=== PATIENT | female | born 1995 ===

== ENCOUNTER 2020-08-03 10:06 | Outpatient (REF) | payer OTHER, SELFPAY ==
[2020-08-03 12:56] LABS: TSH reflex Free T4 1.07 mIU/mL (0.32-4.0)
== END 2020-08-03 10:07 | disposition home or self-care (01) ==
LOC: HO.LAB 10:06
PROVIDERS: PCP Internal Medicine; Referring Provider Internal Medicine; Visit Provider Obstetrics & Gynecology
DX: N93.9 Abnormal uterine and vaginal bleeding, unspecified (principal); Z00.00 Encounter for general adult medical examination without abnormal findings
CPT/HCPCS: 84443; 99213

== ENCOUNTER → 2020-08-27 08:11 | Outpatient (BNVA) | payer OTHER, SELFPAY | PROVIDERS: Visit Provider Obstetrics & Gynecology | DX: N64.4 Mastodynia (principal) | CPT/HCPCS: 99212 ==

== ENCOUNTER 2020-09-03 13:44 | Outpatient (REF) | payer OTHER, SELFPAY ==
--- NOTE | 2020-09-03 | US_ITS ---
EXAMINATION: US DIAGNOSTIC ULTRASOUND BREAST, RIGHT CLINICAL INFORMATION: 24-year-old with pain lower outer right breast. Patient senses fullness right breast. No known family history breast cancer. No prior breast imaging. COMPARISON: None. TECHNIQUE: Ultrasound of the breast is performed with real-time clark scale imaging and color Doppler. Ultrasound is targeted to the 6:00 through 11:00 position. Patient does not palpate a focal area of concern at time of imaging. FINDINGS: There is a macrolobulated circumscribed mildly hypoechoic nodule 10:00 position 6 cm from nipple measuring 1.4 x 1.1 x 0.8 cm. There is no increased or decreased through transmission of sound. This most likely represents a fibroadenoma. There are no other cystic or solid masses. No skin thickening or edema tracking in soft tissue planes. No focal duct ectasia or hyperemia. Results are discussed with the patient at time of visit, using an sporting goods salesperson. Management options for the probable fibroadenoma were discussed. Patient favors serial follow-up. US/US breast RT limited IMPRESSION: 1. Macrolobulated circumscribed nodule 10:00 position 1.4 cm, likely fibroadenoma. 2. No suspicious cystic or solid mass or architectural abnormality. No inflammatory changes. ASSESSMENT: BI-RADS 3: Probably Benign RECOMMENDATION: Targeted right breast ultrasound in 6 months. This patient's information was entered into a reminder system with a target due date for their next breast imaging.
== END 2020-09-03 13:45 | disposition home or self-care (01) ==
LOC: HO.MAMMO 13:44
PROVIDERS: PCP Internal Medicine; Visit Provider Obstetrics & Gynecology
DX: N64.4 Mastodynia (principal)
CPT/HCPCS: 76642

== ENCOUNTER 2020-09-10 14:21 | Outpatient (REF) | payer OTHER, SELFPAY | END 2020-09-10 14:22 | disposition home or self-care (01) | LOC: HO.LAB 14:21 | PROVIDERS: PCP Internal Medicine; Visit Provider Internal Medicine | DX: Z20.828 Contact with and (suspected) exposure to other viral communicable diseases (principal) | CPT/HCPCS: C9803; U0003 ==

== ENCOUNTER 2020-09-19 08:32 | Outpatient (REF) | payer OTHER, SELFPAY ==
[2020-09-20 09:35] LABS: BV Int Neg Control Negative (Negative); BV Int Pos Control Positive (Positive)
[2020-09-25 11:31] LABS: CT PCR NOT DETECTED (Not Detect.); NG PCR NOT DETECTED (Not Detect.)
== END 2020-09-19 08:33 | disposition home or self-care (01) ==
LOC: HO.LAB 08:32
PROVIDERS: Visit Provider Obstetrics & Gynecology
DX: Z01.419 Encounter for gynecological examination (general) (routine) without abnormal findings (principal); Z11.3 Encounter for screening for infections with a predominantly sexual mode of transmission
CPT/HCPCS: 87480; 87491; 87510; 87591; 87660; 88142

== ENCOUNTER 2020-09-26 06:36 | Outpatient (REF) | payer OTHER, SELFPAY | END 2020-09-26 06:37 | disposition home or self-care (01) | LOC: HO.LAB 06:36 | PROVIDERS: PCP Internal Medicine; Visit Provider Internal Medicine | DX: Z20.828 Contact with and (suspected) exposure to other viral communicable diseases (principal) | CPT/HCPCS: C9803; U0003 ==

== ENCOUNTER 2021-03-04 12:47 | Outpatient (REF) | payer OTHER, SELFPAY ==
--- NOTE | ~2021-03-04 | US_ITS ---
EXAMINATION: US DIAGNOSTIC ULTRASOUND BREAST, RIGHT CLINICAL INFORMATION: Probable fibroadenoma upper outer right breast for short interval six-month follow-up. COMPARISON: Targeted right breast ultrasound 09/03/2020. TECHNIQUE: Ultrasound right breast is targeted to the upper outer quadrant. Grayscale imaging and color Doppler are performed without and with harmonics. FINDINGS: The solid macrolobulated mass 10:00 position 6 cm from nipple is stable to borderline decreased in size from initial exam 09/03/2020. Greatest dimension is 1.2 cm compared with prior measurement 1.4 cm. There is no interval new cystic or solid mass in the targeted area. No focal duct ectasia. No suspicious changes. Results are provided to the patient at time of visit by the technologist. Management plan is for short interval follow-up in 6 months (1 year follow-up from initial study). 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 ASSESSMENT: BI-RADS 3: Probably Benign RECOMMENDATION: Targeted right breast ultrasound in 6 months. This patient's information was entered into a reminder system with a target due date for their next breast imaging.
== END 2021-03-04 12:48 | disposition home or self-care (01) ==
LOC: HO.MAMMO 12:47
PROVIDERS: PCP Internal Medicine; Visit Provider Obstetrics & Gynecology
DX: N63.11 Unspecified lump in the right breast, upper outer quadrant (principal)
CPT/HCPCS: 76642

== ENCOUNTER 2021-06-20 08:43 | Outpatient (REF) | payer OTHER, SELFPAY ==
--- NOTE | ~2021-06-20 | XR_ITS ---
EXAMINATION: XR CERVICAL SPINE XR CHEST CLINICAL INFORMATION: Cervicalgia and shortness of breath. COMPARISON: None TECHNIQUE: 4 view cervical spine and PA and lateral chest. FINDINGS: No abnormal prevertebral soft tissue swelling is seen. No acute cervical spine fracture. 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 Remainder of the disc spaces are maintained. PA and lateral views of the chest do not demonstrate any evidence of acute parenchymal disease, pneumothorax, or pleural effusion. Heart normal size. No evidence of pulmonary edema. XR/XR cervical spine 3V IMPRESSION: No acute parenchymal disease within the chest. 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 No significant degenerative change or fracture of the cervical spine.
--- NOTE | ~2021-06-20 | XR_ITS ---
EXAMINATION: XR CERVICAL SPINE XR CHEST CLINICAL INFORMATION: Cervicalgia and shortness of breath. COMPARISON: None TECHNIQUE: 4 view cervical spine and PA and lateral chest. FINDINGS: No abnormal prevertebral soft tissue swelling is seen. No acute cervical spine fracture. 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 Remainder of the disc spaces are maintained. PA and lateral views of the chest do not demonstrate any evidence of acute parenchymal disease, pneumothorax, or pleural effusion. Heart normal size. No evidence of pulmonary edema. XR/XR chest 2V IMPRESSION: No acute parenchymal disease within the chest. 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 No significant degenerative change or fracture of the cervical spine.
[2021-06-20 09:05] LABS: MANUAL DIFF FLAG NO
[2021-06-20 09:13] LABS: Basophils Percent Auto 0.6 % (0-2); Eosinophils Absolute Auto 0.1 X10*3/uL (0.0-0.4); Eosinophils Percent Auto 1.8 % (0-4); Hematocrit 38.9 % (37-47); Hemoglobin 12.3 g/dl (12.0-16.0); Imm Gran Abs Auto 0.01 X10*3/uL (0.00-0.03); Imm Gran Pct Auto 0.1 % (0.0-0.4); Lymphocytes Absolute Auto 2.9 X10*3/uL (1.2-4.9); Lymphocytes Percent Auto 42.4 % (20-40); Mean Corpuscular HGB Conc 31.6 g/dl (31.0-35.0); Mean Corpuscular Hemoglobin 25.3 pg (27.0-33.0); Mean Platelet Volume 9.2 fL (9.4-12.3); Monocytes Absolute Auto 0.7 X10*3/uL (0.1-1.2); Monocytes Percent Auto 10.8 % (2-11); Neutrophils Percent Auto 44.3 % (45-73); Platelet Count 391 X10*3/uL (160-400); Red Blood Count 4.86 X10*6/uL (4.20-5.50); Red Cell Distribution Width 13.2 % (11.0-16.0); White Blood Count 6.8 X10*3/uL (4.8-10.8)
[2021-06-20 09:49] LABS: Alanine Aminotransferase 12 U/L (0-31); Albumin Level 4.1 g/dL (3.5-5.0); Alkaline Phosphatase 67 U/L (39-117); Anion Gap 13 (12-20); Aspartate Amino Transferase 10 U/L (5-31); Bilirubin Total 0.2 mg/dL (0.0-1.0); Calcium 10.1 mg/dL (8.4-10.2); Carbon Dioxide 20 mmol/L (22-29); Chloride 108 mmol/L (96-108); Cholesterol 196 mg/dL; Estimated Glomerular Filt Rate > 60; Glucose Fasting 111 mg/dL (60-99); HDL Cholesterol 43 mg/dL; Iron 41 mcg/dL (30-160); LDL Cholesterol Calculated 107 mg/dl; Percent Iron Saturation 8 % (15-50); Potassium 4.3 mmol/L (3.3-5.1); Sodium 137 mmol/L (135-145); Total Iron Binding Capacity 493 mcg/dL (228-428); Total Protein 7.5 g/dL (6.5-8.0); Triglycerides 231 mg/dL; Unsaturated Iron Binding 452 ug/dL
[2021-06-20 10:04] LABS: Thyroid Stimulating Hormone 1.58 uIU/mL (0.32-4.0)
[2021-06-20 10:23] LABS: Blood Urea Nitrogen 12 mg/dL (9-16)
[2021-06-27 14:07] LABS: Vitamin D 25-OH, D2 <4 ng/mL; Vitamin D 25-OH, D3 42 ng/mL; Vitamin D 25-OH, Total 42 ng/mL (30-100)
== END 2021-06-20 08:44 | disposition home or self-care (01) ==
LOC: HO.LAB 08:43
PROVIDERS: PCP Internal Medicine; Visit Provider Internal Medicine
DX: M54.2 Cervicalgia (principal); R06.02 Shortness of breath; E78.5 Hyperlipidemia, unspecified; E55.9 Vitamin D deficiency, unspecified; E66.3 Overweight; D64.9 Anemia, unspecified
CPT/HCPCS: 36415; 71046; 72040; 80053; 80061; 82306; 83540; 84443; 85025

== ENCOUNTER 2021-07-30 06:59 | Emergency (ER) | payer OTHER, SELFPAY ==
[2021-07-30 07:18] VITALS: BP 116/78; PULSE 94; RESP 16; TEMP 36.8; O2SAT 98; BMI 26.3
--- NOTE | 2021-07-30 07:24 | ED.URI ---
HPI - URI/Sore Throat General Chief Complaint: Upper Respiratory Symptoms Stated Complaint: sore throat, allergies Time Seen by Provider: 07/30/21 07:24 Source: patient Mode of arrival: ambulatory Limitations: no limitations History of Present Illness MD elicited complaint: fever, cough, sore throat and rhinorrhea Onset (ago): day(s) (3) Consistency: constant Severity: moderate Description of mucous: clear Able to tolerate fluids by mouth: Yes Exacerbating factors: swallowing Relieving factors: nothing Context: sick contacts Associated symptoms: chills, rhinorrhea, sore throat and cough Treatments prior to arrival: none Related Data Previous Rx's Medication Instructions Recorded desogestrel 0.15 mg-ethinyl 1 tab PO DAILY #28 tab 07/10/21 estradiol 0.03 mg tablet (Apri) Apri 0.15 mg-0.03 mg tablet 1 tab PO DAILY #28 tab NS 07/11/21 (desogestrel-ethinyl estradiol) Allergies Allergy/AdvReac Type Severity Reaction Status Date / Time shellfish derived Allergy Intermediate Rash Verified 06/05/21 16:53 seafood Allergy Unknown Unknown Verified 06/05/21 16:53 Review of Systems Review of Systems: Constitutional : no Fever, positive Chills, positive fatigue, positive Malaise ENT/Mouth : positive sore throat, positive runny nose Eyes: No Discharge Cardiovascular : No Chest Pain, No SOB Respiratory : No Cough, No Sputum Gastrointestinal : No Nausea, No Vomiting, No Diarrhea Genitourinary : No Dysuria, No Urinary Frequency Musculoskeletal : positive Myalgia Skin : No rash Neuro : No Headache PMFSH Past Medical History Attestation statement: The following information was validated with the patient. Medical History Anemia Blurry vision History of anemia History of irregular menstrual bleeding Mild depression Neck pain Overweight (BMI 25.0-29.9) Surgical History No pertinent past surgical history Family History Family History Father Diabetes mellitus HTN (hypertension) Mother Diabetes mellitus Paternal Grandfather HTN (hypertension) Family/Other Substance abuse in family Chronic mental illness Social History Social History Housing: Apartment Alcohol intake: never Patient Tobacco Use Status: Former Tobacco user Tobacco use type: Cigarette e-Cigarette/Vaping Use: Never Used Second Hand Smoke Exposure: No Advance Directives: No Patient : No service: No Current occupational status: unemployed Sexual orientation: Straight/Heterosexual Gender identity: Female Physical Exam Vital Signs: Vital Signs: Last Vital Signs Temp 98.3 F 07/30/21 07:18 Pulse 94 07/30/21 07:18 Resp 16 07/30/21 07:18 BP 116/78 07/30/21 07:18 Pulse Ox 98 07/30/21 07:18 Body Mass Index 26.3 Appearance: Alert. Oriented X3. No acute distress. Eyes: Pupils equal, round and reactive to light. ENT: Pharynx mild erythema no exudates noted Neck: Normal inspection. Neck supple. CVS: Normal heart rate and rhythm. Pulses normal. Respiratory: No respiratory distress. Breath sounds normal. Abdomen: Soft and nontender. Skin: Skin warm and dry. Normal skin color. Normal skin turgor. Extremities: No lower extremity edema. No calf ttp Neuro: Oriented X 3. No motor deficit. No sensory deficit. MDM - URI/Sore Throat MDM Narrative Medical decision making narrative: 25 yo female hx of anemia here with URI symptoms not vaccinated she came to the ED with her spouse who has similar symptoms. Her lungs are clear no hypoxia doubt pneumonia, no exudates in pharynx doubt strep. COVID test ordered. Can be DC to home if positive Lab Data Labs: Lab Results 07/30/21 07/30/21 Range/Units 07:23 08:02 COVID-19 (ANNIKA) Negative (Negative) COVID-19 Clin Com See Note S. pyogenes GrpA MARK Negative (Negative) Discharge Plan Discharge Clinical Impression: Viral infection Patient Disposition: Home, Self-Care Instructions: Viral Syndrome (ED) Additional Instructions: return to ED for any worsening symptoms or concerns I WOULD GET RETESTED IN 2 days quarantine yourself from others wear a mask, your symptoms are concerning for COVID even though your test was negative Prescriptions: No Action desogestrel-ethinyl estradiol [Apri] 0.15-0.03 mg tablet 1 tab PO DAILY Qty: 28 RF: 2 desogestrel-ethinyl estradiol [Apri] 0.15-0.03 mg tablet 1 tab PO DAILY Qty: 28 RF: 2 Stand Alone Forms: Work/School Release
[2021-07-30 07:45] LABS: COVID-19 Test Negative (Negative); IDNOW Serial# 9DD0AD1C
[2021-07-30 08:20] LABS: IDNOW Serial# 9DD0AD1C
[2021-07-30 08:21] LABS: Strep A Nucleic Acid Negative (Negative)
== END 2021-07-30 08:31 | disposition home or self-care (01) ==
PROVIDERS: Emergency Provider Emergency Medicine; PCP Internal Medicine
DX: B34.9 Viral infection, unspecified (principal); J02.8 Acute pharyngitis due to other specified organisms; R05.9 Cough, unspecified; F17.210 Nicotine dependence, cigarettes, uncomplicated; Z20.822 Contact with and (suspected) exposure to COVID-19; Z71.6 Tobacco abuse counseling; Z79.899 Other long term (current) drug therapy
CPT/HCPCS: 36415; 87635; 87651; 99283; 99284

== ENCOUNTER 2021-08-01 10:07 | Outpatient (REF) | payer OTHER, SELFPAY | END 2021-08-01 10:08 | disposition home or self-care (01) | LOC: HO.LAB 10:07 | PROVIDERS: Visit Provider Internal Medicine | DX: Z20.822 Contact with and (suspected) exposure to COVID-19 (principal) | CPT/HCPCS: C9803; U0003; U0005 ==

== ENCOUNTER 2021-10-25 12:44 | Outpatient (REF) | payer OTHER, SELFPAY ==
--- NOTE | ~2021-10-25 | US_ITS ---
EXAMINATION: US DIAGNOSTIC ULTRASOUND BREAST, RIGHT CLINICAL INFORMATION: Six-month followup right breast nodule. COMPARISON: 03/04/2021 and 09/03/2020. TECHNIQUE: Ultrasound of the breast is performed with real-time clark-scale imaging and color Doppler. FINDINGS: There is again noted be a stable 1.1 x 1.3 x 0.7 cm well-circumscribed hypoechoic solid lesion which is wider than it is tall without distal sound shadowing and without internal vascularity. This has the appearance of a fibroadenoma. Recommend a 1-year followup ultrasound to ensure stability to greater than 2 years. No region of abnormal distal sound shadowing identified. No edematous change within the parenchyma. Results are discussed with the patient at time of visit. US/US breast RT limited IMPRESSION: Stable appearance of right breast nodule likely representing fibroadenoma. ASSESSMENT: BI-RADS 3: Probably Benign. RECOMMENDATION: Diagnostic 12-month ultrasound examination of the right breast. This patient's information was entered into a reminder system with a target due date for their next mammogram.
== END 2021-10-25 12:45 | disposition home or self-care (01) ==
LOC: HO.MAMMO 12:44
PROVIDERS: Visit Provider Obstetrics & Gynecology
DX: N63.10 Unspecified lump in the right breast, unspecified quadrant (principal)
CPT/HCPCS: 76642

== ENCOUNTER 2021-11-05 07:54 | Outpatient (REF) | payer OTHER, SELFPAY ==
[2021-11-05 08:04] LABS: MANUAL DIFF FLAG NO
[2021-11-05 09:03] LABS: Basophils Percent Auto 0.3 % (0-2); Eosinophils Absolute Auto 0.1 X10*3/uL (0.0-0.4); Eosinophils Percent Auto 1.3 % (0-4); Hematocrit 38.9 % (37.0-47.0); Hemoglobin 12.3 g/dl (12.0-16.0); Imm Gran Abs Auto 0.03 X10*3/uL (0.00-0.03); Imm Gran Pct Auto 0.3 % (0.0-0.4); Lymphocytes Absolute Auto 3.6 X10*3/uL (1.2-4.9); Lymphocytes Percent Auto 41.1 % (20-40); Mean Corpuscular HGB Conc 31.6 g/dl (31.0-35.0); Mean Corpuscular Hemoglobin 26.2 pg (27.0-33.0); Mean Corpuscular Volume 82.9 fL (80.0-98.0); Mean Platelet Volume 9.1 fL (9.4-12.3); Monocytes Absolute Auto 0.7 X10*3/uL (0.1-1.2); Monocytes Percent Auto 8.2 % (2-11); Neutrophils Absolute Auto 4.3 x10*3/uL (2.0-8.3); Neutrophils Percent Auto 48.8 % (45-73); Platelet Count 395 X10*3/uL (160-400); Red Blood Count 4.69 X10*6/uL (4.20-5.50); Red Cell Distribution Width 12.7 % (11.0-16.0); White Blood Count 8.7 X10*3/uL (4.8-10.8)
[2021-11-05 09:35] LABS: Alanine Aminotransferase 11 U/L (0-31); Alkaline Phosphatase 69 U/L (39-117); Anion Gap 13 (12-20); Aspartate Amino Transferase 10 U/L (5-31); Bilirubin Total 0.4 mg/dL (0.0-1.0); Blood Urea Nitrogen 12 mg/dL (9-16); Calcium 9.9 mg/dL (8.4-10.2); Carbon Dioxide 25 mmol/L (22-29); Chloride 107 mmol/L (96-108); Estimated Glomerular Filt Rate > 60; Glucose Fasting 96 mg/dL (60-99); Iron 66 mcg/dL (30-160); Percent Iron Saturation 13 % (15-50); Potassium 4.5 mmol/L (3.3-5.1); Sodium 140 mmol/L (135-145); Total Iron Binding Capacity 515 mcg/dL (228-428); Total Protein 7.7 g/dL (6.5-8.0); Unsaturated Iron Binding 449 ug/dL
[2021-11-05 10:05] LABS: Folate 8.8 ng/mL (> or = 4.0); Vitamin B12 205 pg/mL (200-900)
== END 2021-11-05 07:55 | disposition home or self-care (01) ==
LOC: HO.LAB 07:54
PROVIDERS: PCP Internal Medicine; Visit Provider Internal Medicine
DX: E66.3 Overweight (principal); D64.9 Anemia, unspecified
CPT/HCPCS: 36415; 80053; 82607; 82746; 83540; 85025

== ENCOUNTER 2022-04-12 09:37 | Outpatient (REF) | payer OTHER, SELFPAY ==
[2022-04-12 09:43] LABS: MANUAL DIFF FLAG NO
[2022-04-12 10:24] LABS: Basophils Percent Auto 0.5 % (0-2); Eosinophils Absolute Auto 0.2 X10*3/uL (0.0-0.4); Eosinophils Percent Auto 2.3 % (0-4); Hematocrit 38.1 % (37.0-47.0); Hemoglobin 12.2 g/dl (12.0-16.0); Imm Gran Abs Auto 0.02 X10*3/uL (0.00-0.03); Imm Gran Pct Auto 0.3 % (0.0-0.4); Lymphocytes Absolute Auto 1.7 X10*3/uL (1.2-4.9); Lymphocytes Percent Auto 26.8 % (20-40); Mean Corpuscular Hemoglobin 25.9 pg (27.0-33.0); Mean Corpuscular Volume 80.9 fL (80.0-98.0); Mean Platelet Volume 9.2 fL (9.4-12.3); Monocytes Absolute Auto 0.8 X10*3/uL (0.1-1.2); Monocytes Percent Auto 11.7 % (2-11); Neutrophils Absolute Auto 3.8 x10*3/uL (2.0-8.3); Neutrophils Percent Auto 58.4 % (45-73); Platelet Count 398 X10*3/uL (160-400); Red Blood Count 4.71 X10*6/uL (4.20-5.50); Red Cell Distribution Width 13.2 % (11.0-16.0); White Blood Count 6.4 X10*3/uL (4.8-10.8)
[2022-04-12 10:46] LABS: Iron 39 mcg/dL (30-160); Percent Iron Saturation 8 % (15-50); Total Iron Binding Capacity 466 mcg/dL (228-428); Unsaturated Iron Binding 427 ug/dL
[2022-04-12 11:10] LABS: Thyroid Stimulating Hormone 0.68 uIU/mL (0.32-4.0)
== END 2022-04-12 09:38 | disposition home or self-care (01) ==
LOC: HO.LAB 09:37
PROVIDERS: PCP Internal Medicine; Visit Provider Internal Medicine
DX: L65.9 Nonscarring hair loss, unspecified (principal); D64.9 Anemia, unspecified
CPT/HCPCS: 36415; 83540; 84443; 85025

== ENCOUNTER 2022-04-13 10:09 | Emergency (ER) | payer OTHER, SELFPAY ==
[2022-04-13 10:24] VITALS: BP 115/56; PULSE 99; RESP 20; TEMP 37.7; O2SAT 98; BMI 28.2
[2022-04-13 10:42] LABS: COVID-19 Test Positive (Negative); IDNOW Serial# 9DB6401D
[2022-04-13 10:49] LABS: IDNOW Serial# 16C4AD1C; Influenza A Negative (Negative); Influenza B2 Negative (Negative)
--- NOTE | 2022-04-13 10:49 | ED_ITS ---
HPI - General Adult General Chief complaint: General Medical Stated complaint: Flu symptoms Time Seen by Provider: 04/13/22 10:49 Source: patient and senior microsoft consultant Mode of arrival: ambulatory Limitations: language barrier History of Present Illness HPI narrative: Patient is a 26 year old female presenting to the emergency department today with body aches, fever, and chills since yesterday. Patient states that since yesterday she has had body aches, fever, and chills. Patient denies any dizziness, lightheadedness, abdominal pain, nausea, vomiting, blurry vision, double vision, loss of vision, chest pain, difficulty breathing, shortness of breath, back pain, night sweats, pain with urination, increased urinary frequency, increased urinary urgency, blood in her urine or stool, syncope or a near syncopal episode, recent trauma or falls, bowel incontinence, bladder incontinence, bowel retention, bladder retention, or any other complaints at this time. Onset (ago): day(s) (1) Radiation: non-radiation Severity: mild Severity scale (1-10): 3 Quality: dull Pain Consistency: constant Relieving factors: none Exacerbating factors: none Associated symptoms: fever/chills Treatments prior to arrival: none Related Data Previous Rx's Medication Instructions Recorded Apri 0.15 mg-0.03 mg tablet 1 tab PO DAILY #28 tabs 10/30/21 (desogestrel-ethinyl estradiol) Allergies Allergy/AdvReac Type Severity Reaction Status Date / Time shellfish derived Allergy Intermediate Rash Verified 10/28/21 16:29 seafood Allergy Unknown Unknown Verified 10/28/21 16:29 Review of Systems Constitutional: Constitutional: Reports no additional constitutional complaints, Reports body ache(s), Reports chills, Reports fever(s) and Denies night sweats Eyes: Eyes: Reports no additional eye complaints, Denies blurry vision, Denies change in vision, Denies diplopia, Denies eye discharge, Denies loss of vision and Denies eye pain ENT: Denies dizziness and Reports sore throat Cardiovascular: Cardiovascular: Reports no additional cardiovascular complaints, Denies chest pain, Denies lightheadedness, Denies Loss of Consciousness and Denies dyspnea Respiratory: Respiratory: Reports no additional respiratory complaints and Denies dyspnea Gastrointestinal: Gastrointestinal: Reports no additional gastrointestinal complaints, Denies abdominal pain, Denies melena, Denies hematochezia, Denies change in bowel habits and Denies change in stool character Genitourinary: Genitourinary: Denies hematuria, Denies urinary frequency, Denies dysuria, Denies urinary incontinence, Denies urinary hesitancy and Denies urinary urgency Musculoskeletal: Musculoskeletal: Reports no additional musculoskeletal complaints, Denies numbness and Denies tingling Neurologic: Denies dizziness, Denies loss of vision, Denies numbness and Denies tingling Psychiatric: Psychiatric: Reports no additional psychiatric complaints Endocrine: Endocrine: Reports no additional endocrine complaints Hematologic/Lymphatic: Hematologic/Lymphatic: Reports no additional hematologic/lymphatic complaints Allergic/Immunologic: Allergic/Immunologic: Reports no additional allergic/immunologic complaints PMFSH Past Medical History Attestation statement: The following information was validated with the patient. Source: old records reviewed Medical History History of anemia History of irregular menstrual bleeding Mild depression Surgical History No pertinent past surgical history Family History Family History Father Diabetes mellitus HTN (hypertension) Mother Diabetes mellitus Paternal Grandfather HTN (hypertension) Family/Other Substance abuse in family Chronic mental illness Social History Social History Housing: Apartment Alcohol intake: never Patient Tobacco Use Status: Former Tobacco user Tobacco use type: Cigarette e-Cigarette/Vaping Use: Never Used Second Hand Smoke Exposure: No Advance Directives: No Advance Directives Information Provided: No service: No Current occupational status: unemployed Sexual orientation: Straight/Heterosexual Gender identity: Female Physical Exam ED Vital Signs: Vital Signs - 24 hr 04/13/22 10:24 Temperature 99.8 F Pulse Rate 99 Respiratory Rate 20 Blood Pressure 115/56 L Pulse Oximetry 98 Oxygen Delivery Method Room Air BMI result Body Mass Index 28.2 Const General: cooperative, no acute distress, alert and awake Nutritional Appearance: well nourished Orientation/consciousness: patient oriented x3 Limitations: no limitations HENMT Head: Yes normal to inspection and Yes atraumatic Ears: hearing grossly normal bilaterally and external ears normal General nose exam: Normal external nose present, no nasal discharge noted and no epistaxis Face and sinus: Yes normal facial exam, No abrasion and No laceration Mouth: Normal oral and palatal mucosa present, no drooling and no muffled voice Eyes General: appearance normal, both eyes and all related structures Periorbital: periorbital findings normal Eyelids: Yes eyelids normal Conjunctivae: conjunctivae normal Pupils: Equal, round and reactive pupils present EOM: EOMs intact bilaterally Neck Neck: Yes normal visual inspection, Yes full ROM and Yes no lymphadenopathy Chest Chest palpation & inspection: normal inspection of the chest Resp Effort & Inspection: normal respiratory effort and able to speak in complete sentences Auscultation: clear to auscultation bilaterally Cardio Rate: regular rate Rhythm: regular rhythm GI Inspection: Yes normal to inspection Neuro General: patient oriented x3 and moves all extremities Cranial nerves: Yes Equal, round and reactive pupils present Cognition (Neuro): normal cognition Motor exam (neuro): 5/5 motor strength present throughout Sensory Exam: Normal double simultaneous stimulation for sensation Coordination: [id number] test normal Extrem General: Yes normal to inspection, Yes full ROM and Yes capillary refill normal Psych Appearance: grossly normal Mental Status: mental status grossly normal Affect: normal affect Attitude: cooperative Thought process: Normal thought process present Thought content: Normal thought content present Insight: Good insight present (Psych) Medical Decision Making MDM Narrative Medical decision making narrative: Patient is a 26 year old female presenting to the emergency department today with fever, chills, sore throat, and body aches. Patient's physical exam was unremarkable. Patient's rapid COVID-19 test was positive. I explained my physical exam findings as well as all test results to the patient. I answered all questions asked by the patient. I stressed the importance of the patient taking her medication as prescribed. I stressed the importance of the patient following up with her primary care provider. I stressed the importance of the patient returning to the emergency department immediately if her symptoms were to worsen or if she were to develop any dizziness, shortness of breath, difficulty breathing, chest pain, blurry vision, loss of vision, nausea, vomiting, abdominal pain, fever, chills, back pain, or any other complaints. Patient verbalized agreement and understanding with this treatment plan and discharge. Differential Diagnosis Differential Diagnosis: COVID-19, viral illness Medical Records Medical records reviewed: Yes I reviewed the patient's medical records. Lab Data Lab results reviewed: Yes I reviewed the patient's lab results. Labs: Lab Results 04/13/22 04/13/22 Range/Units 10:29 10:29 COVID-19 (ANNIKA) Positive A (Negative) COVID-19 Clin Com See Note Influenza Type A (MARK) Negative (Negative) Influenza Type B (MARK) Negative (Negative) Influenza A & B Note See Note Discharge Plan Discharge Clinical Impression: COVID-19 Patient Disposition: Home, Self-Care Instructions: COVID-19 (Coronavirus Disease 2019) (ED) Additional Instructions: Follow up with your primary care provider. Return to the emergency department immediately if your symptoms worsen or if you develop any dizziness, shortness of breath, difficulty breathing, chest pain, blurry vision, loss of vision, nausea, vomiting, abdominal pain, fever, chills, back pain, or any other complaints. Prescriptions: No Action desogestrel-ethinyl estradiol [Apri] 0.15-0.03 mg tablet 1 tab PO DAILY Qty: 28 1RF Referrals: Arlyn May MD [Primary Care Provider] - Stand Alone Forms: Work/School Release Interventions: ED Discharge Assessment Last Done: 04/13/22 11:05 Discharge Date/Time: 04/13/22 11:05 Print Language: [place]ight
== END 2022-04-13 11:05 | disposition home or self-care (01) ==
PROVIDERS: Emergency Provider Emergency Medicine Emergency Medical Services; PCP Internal Medicine
DX: U07.1 COVID-19 (principal)
CPT/HCPCS: 87502; 87635; 99282; 99283

== ENCOUNTER 2023-04-14 18:29 | Emergency (ER) | payer OTHER, SELFPAY ==
--- NOTE | ~2023-04-14 | XR_ITS ---
EXAMINATION: XR ELBOW, LEFT CLINICAL INFORMATION: Lateral epicondyles tenderness to palpation COMPARISON: None available. TECHNIQUE: AP, lateral, and oblique views of the left elbow. FINDINGS: The bones and soft tissues are unremarkable. No fracture or joint effusion. Alignment is anatomic. Joint spaces are maintained. XR/XR elbow LT 2V IMPRESSION: Normal left elbow.
[2023-04-14 18:48] VITALS: BP 120/80; PULSE 95; RESP 18; TEMP 36.7; O2SAT 97; BMI 28.2
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
[2023-04-14] MEDS: Diphth,Pertus(ACell),Tet Adult 0.5 ML SYRINGE IM (20:39)
[2023-04-14] MEDS: Ibuprofen 600 MG TABLET PO (20:39)
[2023-04-14] MEDS: Bacitracin Oint 0.9 GM PACKET 1 APPL TOPICAL (20:39)
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
== END 2023-04-14 21:02 | disposition home or self-care (01) ==
PROVIDERS: Emergency Provider Emergency Medicine; PCP Internal Medicine
DX: S50.02XA Contusion of left elbow, initial encounter (principal); S50.312A Abrasion of left elbow, initial encounter; T24.201A Burn of second degree of unspecified site of right lower limb, except ankle and foot, initial encounter; T31.0 Burns involving less than 10% of body surface; M79.604 Pain in right leg; M25.522 Pain in left elbow; V28.09XA Other motorcycle driver injured in noncollision transport accident in nontraffic accident, initial encounter; Y99.9 Unspecified external cause status; Y92.9 Unspecified place or not applicable; Z87.891 Personal history of nicotine dependence; Z79.899 Other long term (current) drug therapy; Z23 Encounter for immunization
CPT/HCPCS: 16025; 73070; 90471; 90715; 99283; 99284

== ENCOUNTER 2023-06-17 17:21 | Outpatient (AMB) | payer OTHER, SELFPAY ==
[2023-06-17 17:27] VITALS: BP 118/72; BMI 29.8
--- NOTE | 2023-06-17 17:27 | A.OFFPC_ITS ---
Vital Signs 06/17/23 17:27 Height 5 ft 7 in Weight 190 lb BMI 29.8 BP 118/72 Blood Pressure Location Lt brachial Position Sitting Intake Visit Reasons: annual exam Intake Note: Patient here for a physical exam Critical Care Educator Required: No Accompanied by: Self / Same As Patient Allergies shellfish derived Allergy (Intermediate, Verified 06/17/23 17:34) Rash seafood Allergy (Unknown, Verified 06/17/23 17:34) Unknown Medication List - Last Reconciled 06/17/23 by Arlyn Ricks MD No Known Home Meds Tobacco use date assessed: 06/17/23 Dental Screening Dental Screen Date: 06/17/23 Did you have a dental visit in the last 12 months?: Yes Did you have a dental problem in the last 6 months where you did not have access to dental care?: No Was dental information given to patient?: Patient has dentist HPI HPI Comments History of Present Illness Details This is a 27-year-old female that comes for her physical exam. Last Pap smear was 2020 and was normal. Complains of shortness of breath and will have chest x-ray. Also has diffuse abdominal pain more prominent in left and right lower quadrant. Abdominal pain not associated with food. PFS Medical History Anemia Blurry vision COVID-19 History of anemia History of irregular menstrual bleeding Mild depression Neck pain Overweight (BMI 25.0-29.9) Surgical History No pertinent past surgical history Family History Father Diabetes mellitus HTN (hypertension) Mother Diabetes mellitus Paternal Grandfather HTN (hypertension) Family/Other Substance abuse in family Chronic mental illness Social History Housing: Apartment Alcohol intake: never Patient Tobacco Use Status: Former Tobacco user Tobacco use type: Cigarette e-Cigarette/Vaping Use: Never Used Second Hand Smoke Exposure: No service: No Current occupational status: employed Current occupational exposures/hazards: No Sexual orientation: Straight/Heterosexual Gender identity: Female Cognitive needs: No Hearing needs: No Vision needs: No Female Reproductive History Menstrual Age of Menarche: 9 Questionnaire PHQ-9 Over the last 2 weeks, how often have you been bothered by any of the following problems? 1. Little interest or pleasure in doing things: not at all 2. Feeling down, depressed, or hopeless: not at all 3. Trouble falling or staying asleep, or sleeping too much: not at all 4. Feeling tired or having little energy: not at all 5. Poor appetite or overeating: not at all 6. Feeling bad about yourself - or that you are a failure or have let yourself or your family down: not at all 7. Trouble concentrating on things, such as reading the newspaper or watching television: not at all 8. Moving or speaking so slowly that other people could have noticed. Or the opposite - being so fidgety or restless that you have been moving around a lot more than usual: not at all 9. Thoughts that you would be better off or of hurting yourself in some way: not at all Total score: 0 Depression Screening Interpretation: Negative 06813 - PHQ-9 Billing: Yes Source: Developed by Drs. Saman Ann, Zaira Galeas, Santos Hui and colleagues, with an educational ad from [employer] ([employer] Thrive Questionnaire Date Thrive assessed: 06/17/23 I am a: Patient What is your living situation today?: I have a steady place to live Within the past 12 months, did the food you bought not last and you didn't have the money to get more?: Never true Within the past 12 months, did you worry whether your food would run out before you got money to buy more?: Never true Do you have trouble paying for medicines?: No Do you have trouble getting transportation to medical appointments?: No Do you have trouble paying your heating and electricity bill?: No Do you have trouble taking care of your child, family member or friend?: No Do you have trouble with day-to-day activities such as bathing, preparing meals, shopping, managing finances, etc.?: No Are you currently unemployed and looking for a job?: No Are you interested in more education?: No Please select the resources that you would like help with: None Currently or been in a relationship where the following occur: no concerns reported AUDIT C Alcohol Use Questionnaire (AUDIT-C) 1. How often do you have a drink containing alcohol?: Never Total Score: 0 Score Reviewed/Action Taken: No GINGER-7 AMB Questionnaire GINGER-7 Date GINGER - 7 assessed: 06/17/23 Feeling nervous, anxious, or on edge: 0 = Not at all Not being able to stop or control worryin = Not at all Worrying too much about different things: 0 = Not at all Trouble relaxin = Not at all Being so restless that it is hard to sit still: 0 = Not at all Becoming easily annoyed or irritable: 0 = Not at all Feeling afraid as if something awful might happen: 0 = Not at all Total GINGER-7 score (0-4 normal; 5-9 mild; 10-14 moderate; 15-21 severe): 0 Source: Developed by Drs. Saman Ann, Zaira Galeas, Santos Hui and colleagues, with an educational ad from [employer] ([employer] GINGER-7 Assessment Billing GINGER-7 Assessment Tool: GINGER-7 Assessment 71543 Review of Systems Const All systems reviewed & are unremarkable except as noted in HPI and below Eyes Reports no additional complaints, Denies change in vision and Denies other visual disturbances Card Denies chest pain at rest, Denies chest pain with activity, Denies edema, Denies irregular heart rhythm, Denies claudication, Reports dyspnea, Denies dyspnea on exertion, Denies orthopnea, Denies paroxysmal nocturnal dyspnea and Denies slow heart rate Resp Denies cough, Reports dyspnea and Denies dyspnea on exertion GI Reports abdominal pain, Denies change in bowel habits, Denies excessive flatus, Denies nausea and Denies vomiting Denies urinary incontinence, Denies urinary hesitancy and Denies urinary urgency Musc Denies abnormal gait, Denies atrophy, Denies deformity and Denies limited range of motion Skin/Breast Denies bleeding lesions, Denies changing lesions and Denies rash Neuro Denies abnormal gait and Denies lack of coordination Physical exam (Primary Care) Vital Signs: Last Vital Signs BP 118/72 06/17/23 17:27 BMI result Body Mass Index 29.8 Tobacco/Smoking Status: Tobacco use Status Tobacco use date assessed 10/28/21 06/11/22 17:21 Patient Tobacco Use Status Former Tobacco user 06/11/22 17:21 Tobacco use type Cigarette 06/11/22 17:21 e-Cigarette/Vaping Use Never Used 06/11/22 17:21 Depression Screening Interpretation: Negative Thrive Assessment: Date of Thrive Assessment Date Thrive assessed 10/28/21 06/11/22 17:21 Currently or been in a relationship where the following occur: no concerns reported Const Orientation/consciousness: patient oriented x3 HENMT Head: Yes normal to inspection, Yes normocephalic and Yes atraumatic Ears: external ears normal Mouth: lip normal Eyes General: appearance normal, both eyes and all related structures Eyelids: Yes eyelids normal Conjunctivae: conjunctivae normal Neck Neck: Yes normal visual inspection and Yes supple Resp Effort & Inspection: normal respiratory effort Auscultation: clear to auscultation bilaterally Cardio Jugular venous distension: no JVD Rate: regular rate Rhythm: regular rhythm Heart sounds: S1 normal heart sound present and S2 normal heart sound present GI Inspection: Yes normal to inspection Palpation (GI): Soft to palpation and nontender Auscultation: normal bowel sounds Skin General skin exam: no rashes or lesions noted Neuro General: patient oriented x3 and no focal motor deficits Extrem General: Yes full ROM Psych Appearance: grossly normal Assessment and Plan Assessment & Plan (1) Physical exam: Code(s): Z00.00 - Encounter for general adult medical examination without abnormal findings Plan: Repeat in year Orders: Orders Comprehensive [place]. Panel Fast Today Z00.00 - Encounter for general adult medical examination without abnormal findings Lipid Panel Today E78.5 - Hyperlipidemia, unspecified, Z00.00 - Encounter for general adult medical examination without abnormal findings US abdomen complete Today R10.9 - Unspecified abdominal pain XR chest 2V Today R06.00 - Dyspnea, unspecified US breast RT complete Today D24.9 - Benign neoplasm of unspecified breast Referrals INFORMATION SYSTEMS AUDIT MANAGER Referral Z12.4 - Encounter for screening for malignant neoplasm of cervix Coding Level of Care Code Est Pt Prev Care 18-39y(72929) Diagnoses Physical exam Z00.00 Additional Codes GINGER-7 Assessment Billing - GINGER-7 Assessment Tool: GINGER-7 Assessment [id number] ([id number]) Time Spent (min) 32
== END 2023-06-17 17:47 | disposition home or self-care (01) ==
PROVIDERS: Visit Provider Internal Medicine
DX: Z00.00 Encounter for general adult medical examination without abnormal findings (principal)
CPT/HCPCS: 99395

== ENCOUNTER 2023-06-25 11:11 | Outpatient (REF) | payer OTHER, SELFPAY ==
--- NOTE | ~2023-06-25 | XR_ITS ---
EXAMINATION: XR CHEST CLINICAL INFORMATION: Dyspnea. COMPARISON: None available. TECHNIQUE: 2 views of the chest were obtained. FINDINGS: The cardiomediastinal silhouette is normal. There is no focal lung consolidation or pleural effusion. The bony structures and soft tissues are unremarkable. XR/XR chest 2V IMPRESSION: No active cardiopulmonary disease.
[2023-06-25 14:49] LABS: Alanine Aminotransferase 14 U/L (0-31); Albumin Level 4.4 g/dL (3.5-5.0); Alkaline Phosphatase 78 U/L (39-117); Anion Gap 12 (12-20); Aspartate Amino Transferase 14 U/L (5-31); Bilirubin Total 0.5 mg/dL (0.0-1.0); Blood Urea Nitrogen 13 mg/dL (9-16); Calcium 9.7 mg/dL (8.4-10.2); Carbon Dioxide 25 mmol/L (22-29); Chloride 107 mmol/L (96-108); Cholesterol 261 mg/dL (<200); Estimated Glomerular Filt Rate > 60; Glucose Fasting 86 mg/dL (60-99); HCG Quantitative < 2 mIU/mL; HDL Cholesterol 37 mg/dL (>40); LDL Cholesterol Calculated 183 mg/dL (<100); Sodium 140 mmol/L (135-145); Total Protein 7.9 g/dL (6.5-8.0); Triglycerides 205 mg/dL (<150)
== END 2023-06-25 11:12 | disposition home or self-care (01) ==
LOC: HO.XRAY 11:11
PROVIDERS: PCP Internal Medicine; Visit Provider Internal Medicine
DX: Z00.00 Encounter for general adult medical examination without abnormal findings (principal); N92.6 Irregular menstruation, unspecified; E78.5 Hyperlipidemia, unspecified; R06.00 Dyspnea, unspecified
CPT/HCPCS: 36415; 71046; 80053; 80061; 84702

== ENCOUNTER 2023-06-29 13:48 | Outpatient (REF) | payer OTHER, SELFPAY ==
--- NOTE | ~2023-06-29 | US_ITS ---
EXAMINATION: US DIAGNOSTIC ULTRASOUND BREAST, RIGHT CLINICAL INFORMATION: Follow-up right breast mass 10:00 axis, suspected fibroadenoma. This exam will represent a 3 year stability.. COMPARISON: 10/25/2021, 03/04/2021, 09/03/2020 TECHNIQUE: Ultrasound of the breast is performed with real-time clark scale imaging and color Doppler. Attention was given to the 10:00 axis in the area of interest. FINDINGS: There is redemonstration of a smoothly marginated hypoechoic avascular mass in the 10:00 axis, 7 cm from the nipple, measuring and unchanged 1.4 x 0.7 x 1.1 cm. No posterior features. No internal color Doppler signal. It is unchanged in both size and morphology since August12/08/2019, establishing a near three-year stability and can be considered benign. Results are discussed with the patient at time of visit. US/US breast RT limited mamm only IMPRESSION: Stable benign 1.4 cm mass 10:00 axis right breast, consistent with a stable fibroadenoma. No further follow-up recommended. Recommend the patient resume annual screening mammography at age 39. ASSESSMENT: BI-RADS 2: Benign RECOMMENDATION: Routine annual mammography screening. This patient's information was entered into a reminder system with a target due date for their next mammogram.
== END 2023-06-29 13:49 | disposition home or self-care (01) ==
LOC: HO.MAMMO 13:48
PROVIDERS: PCP Internal Medicine; Visit Provider Internal Medicine
DX: D24.1 Benign neoplasm of right breast (principal)
CPT/HCPCS: 76642

== ENCOUNTER → 2023-06-29 14:00 | Outpatient (BNV) | payer OTHER, SELFPAY | PROVIDERS: PCP Internal Medicine; Visit Provider Radiology Diagnostic Radiology | DX: D24.1 Benign neoplasm of right breast (principal) | CPT/HCPCS: 76642 ==

== ENCOUNTER 2023-07-20 07:56 | Outpatient (REF) | payer OTHER, SELFPAY ==
--- NOTE | ~2023-07-20 | US_ITS ---
EXAMINATION: US ABDOMEN COMPLETE CLINICAL INFORMATION: Unspecified abdominal pain. COMPARISON: None available. TECHNIQUE: Real-time imaging of the abdominal viscera. FINDINGS: PANCREAS: Normal. ABDOMINAL AORTA: The proximal, mid, and distal segments are normal in caliber. INFERIOR VENA CAVA: Visualized portions are normal. LIVER: The liver is normal in size. The liver contour is normal. Liver echotexture may be slightly increased. No focal hepatic lesion. There is no intrahepatic biliary duct dilatation seen. GALLBLADDER: Normal. The gallbladder is physiologically distended without evidence of stones, sludge, polyps, wall thickening or pericholecystic fluid. COMMON BILE DUCT: Normal in caliber measuring 0.4 cm in diameter. RIGHT KIDNEY: Normal. No hydronephrosis. No renal calculi or focal parenchymal lesions. The kidney measures 10.7 cm in maximum dimension. LEFT KIDNEY: Normal. No hydronephrosis. No renal calculi or focal parenchymal lesions. The kidney measures 11.0 cm in maximum dimension. SPLEEN: Normal. The spleen measures 10.5 cm in maximum dimension. FREE FLUID: None. US/US abdomen complete IMPRESSION: Slightly echogenic liver. Differential would include fatty infiltration and hepatocellular disease. Otherwise unremarkable exam.
== END 2023-07-20 07:57 | disposition home or self-care (01) ==
LOC: HO.US 07:56
PROVIDERS: PCP Internal Medicine; Visit Provider Internal Medicine
DX: R10.9 Unspecified abdominal pain (principal)
CPT/HCPCS: 76700

== ENCOUNTER 2023-08-19 15:46 | Outpatient (AMB) | payer OTHER, SELFPAY ==
--- NOTE | 2023-08-19 15:56 | MHC.OFFVIS ---
Intake Vital Signs 08/19/23 15:57 Height 5 ft 7 in Weight 190 lb 14.725 oz BMI 29.9 BP 122/71 Blood Pressure Location Rt brachial Position Sitting Pulse 81 Pulse Source Pulse Oximeter Pulse Oximetry (%) 99 Oxygen Delivery Method Room Air Intake Visit Reasons: KING Intake Note: Pt presents to the office today for KING. Pt states last month she had abdominal pain and vomiting in the morning for 3 days but since then hasn't had any issues. Allergies shellfish derived Allergy (Intermediate, Verified 08/19/23 16:) Rash seafood Allergy (Unknown, Verified 08/19/23 16:) Unknown HPI KING HPI Details 27-year-old female with past medical history of fibroadenoma, on anxiety, anemia, overweight is here today for initial consultation. Patient reports that she experienced abdominal discomfort and vomiting for few days 1st thing in the morning. Patient reports that this happened 1 time with isolated incident. Patient reports that she feels better now. Denies any dyspepsia, dysphagia or odynophagia. Denies any abdominal pain or cramping. Patient does admit to be constipated. Patient had ultrasound done for abdominal discomfort and no acute processes found except for increased echogenicity of the liver suggesting King. Patient's BPC P is referring her to us. Patient had normal liver profile, however patient had high triglycerides as well as high cholesterol. FORMERLY [facility], [facility] Medical History COVID-19 Neck pain Overweight (BMI 25.0-29.9) Blurry vision Anemia History of irregular menstrual bleeding History of anemia Mild depression Surgical History No pertinent past surgical history Family History Father Diabetes mellitus HTN (hypertension) Mother Diabetes mellitus Paternal Grandfather HTN (hypertension) Family/Other Substance abuse in family Chronic mental illness Social History Housing: Apartment Alcohol intake: never Patient Tobacco Use Status: Former Tobacco user Tobacco use type: Cigarette e-Cigarette/Vaping Use: Never Used Second Hand Smoke Exposure: No service: No Current occupational status: employed Current occupational exposures/hazards: No Sexual orientation: Straight/Heterosexual Gender identity: Female Cognitive needs: No Hearing needs: No Vision needs: No Female Reproductive History Menstrual Age of Menarche: 9 Review of Systems Const Denies weight gain and Denies weight loss ENT Reports no additional complaints, Denies dysphagia and Denies odynophagia Card Reports no additional complaints Resp Reports no additional complaints GI Denies abdominal pain, Denies belching, Denies melena, Denies bloating, Denies change in bowel habits, Denies dysphagia, Denies excessive flatus, Denies dyspepsia, Denies heartburn, Denies diarrhea, Denies loose stools, Denies nausea, Denies odynophagia and Denies vomiting Reports no additional complaints Musc Reports no additional complaints Neuro Reports no additional complaints Psych Reports no additional complaints Endo Reports no additional complaints Physical Exam Vital Signs: Last Vital Signs Pulse 81 08/19/23 15:57 BP 122/71 08/19/23 15:57 Pulse Ox 99 08/19/23 15:57 Oxygen Delivery Method Room Air 08/19/23 15:57 BMI result Body Mass Index 29.9 Const General: healthy appearing, no acute distress and well developed Nutritional Appearance: obese Orientation/consciousness: patient oriented x3 HEENT Head: Yes normal to inspection, Yes normocephalic and Yes atraumatic Face and sinus: Yes normal facial exam Mouth: Normal oral and palatal mucosa present Throat: Yes posterior oropharynx normal, Yes tonsils normal and Yes uvula midline Eyes General: appearance normal, both eyes and all related structures Neck Neck: Yes normal visual inspection, Yes full ROM and Yes trachea midline Thyroid: Thyroid normal Resp Effort & Inspection: normal respiratory effort, able to speak in complete sentences, no tracheal deviation and symmetric chest movement Auscultation: clear to auscultation bilaterally Cardio Rate: regular rate Heart sounds: S1 normal heart sound present and S2 normal heart sound present GI Inspection: Yes normal to inspection, No distended and Yes obesity Palpation (GI): Soft to palpation, not firm, nontender and No hepatosplenomegaly present Auscultation: normal bowel sounds General: Yes no CVA tenderness Back/Spine/Pelvis Back: no CVA tenderness Skin General skin exam: elasticity normal, turgor normal and dry skin Neuro General: patient oriented x3 Psych Appearance: grossly normal Mental Status: mental status grossly normal Affect: normal affect Results Reviewed Results Reviewed: US ABDOMEN: FINDINGS: PANCREAS: Normal. ABDOMINAL AORTA: The proximal, mid, and distal segments are normal in caliber. INFERIOR VENA CAVA: Visualized portions are normal. LIVER: The liver is normal in size. The liver contour is normal. Liver echotexture may be slightly increased. No focal hepatic lesion. There is no intrahepatic biliary duct dilatation seen. GALLBLADDER: Normal. The gallbladder is physiologically distended without evidence of stones, sludge, polyps, wall thickening or pericholecystic fluid. COMMON BILE DUCT: Normal in caliber measuring 0.4 cm in diameter. RIGHT KIDNEY: Normal. No hydronephrosis. No renal calculi or focal parenchymal lesions. The kidney measures 10.7 cm in maximum dimension. LEFT KIDNEY: Normal. No hydronephrosis. No renal calculi or focal parenchymal lesions. The kidney measures 11.0 cm in maximum dimension. SPLEEN: Normal. The spleen measures 10.5 cm in maximum dimension. FREE FLUID: None. US/US abdomen complete IMPRESSION: Slightly echogenic liver. Differential would include fatty infiltration and hepatocellular disease. Otherwise unremarkable exam. Assessment & Plan Assessment & Plan (1) KING (nonalcoholic steatohepatitis): Code(s): K75.81 - Nonalcoholic steatohepatitis (KING) (2) Abdominal pain: Code(s): R10.9 - Unspecified abdominal pain Qualifiers: Abdominal location: generalized Qualified Code(s): R10.84 - Generalized abdominal pain (3) Constipation: Code(s): K59.00 - Constipation, unspecified Qualifiers: Constipation type: slow transit constipation Qualified Code(s): K59.01 - Slow transit constipation Plan Patient still occasionally experiences epigastric discomfort postprandially. Will rule out celiac, check her lipase. Will check vitamin-D level. Patient is constipated will start her on senna. Patient was encouraged to try to lose weight, choose food that is low fat. Patient was also encouraged to try to exercise. Increase fluid intake. Patient will return in 3 months, sooner on as needed basis. She is agreeable to this plan and verbalizes understanding of instructions. She was given the opportunity to ask questions and all questions answered. Thank you for allowing me to participate in her care Orders: Orders Transglutaminase Ab IgG 08/19/23 R10.9 - Unspecified abdominal pain Transglutaminase IgA 08/19/23 R10.9 - Unspecified abdominal pain Vitamin D 25-OH (D2 and D3) 08/19/23 E55.9 - Vitamin D deficiency, unspecified Lipase 08/19/23 R10.9 - Unspecified abdominal pain Medications: New sennosides (Natural Senna Laxative) 17.2 mg (2 x 8.6 mg) PO BEDTIME 60 tabs 1RF constipation K59.00 - Constipation, unspecified Coding Level of Care Code New Pt Level 3 (00258) Diagnoses KING (nonalcoholic steatohepatitis) K75.81 Generalized abdominal pain R10.84 Abdominal location: generalized Slow transit constipation K59.01 Constipation type: slow transit constipation Time Spent (min) 45 Comment 30 minutes spent with patient and additional 10 minute spent reviewing her records
[2023-08-19 15:57] VITALS: BP 122/71; PULSE 81; O2SAT 99; BMI 29.9
== END 2023-08-19 16:25 | disposition home or self-care (01) ==
PROVIDERS: PCP Internal Medicine; Visit Provider Nurse Practitioner Family
DX: K75.81 Nonalcoholic steatohepatitis (NASH) (principal); R10.84 Generalized abdominal pain; K59.01 Slow transit constipation
CPT/HCPCS: 99203

== ENCOUNTER → 2023-08-19 15:46 | Outpatient (BNVA) | payer OTHER, SELFPAY | PROVIDERS: PCP Internal Medicine; Visit Provider Nurse Practitioner Family | DX: K75.81 Nonalcoholic steatohepatitis (NASH) (principal); R10.84 Generalized abdominal pain; K59.01 Slow transit constipation | CPT/HCPCS: 99202 ==

== ENCOUNTER 2024-04-07 10:13 | Emergency (ER) | payer OTHER, SELFPAY ==
--- NOTE | ~2024-04-07 | CT_ITS ---
EXAMINATION: CT ABDOMEN AND PELVIS WITHOUT CONTRAST CLINICAL INFORMATION: Right-sided flank pain COMPARISON: Ultrasound abdomen 07/20/2023 TECHNIQUE: Multidetector volumetric imaging was performed from the superior aspect of the liver through the pubic symphysis. Sagittal and coronal reformatted images were obtained on the technologist's workstation. This CT examination was performed using dose optimization techniques as appropriate, variously including the following: *Automated exposure control *Adjustment of mA and/or kV according to patient size (this includes techniques or standardized protocols for targeted exams where dose is matched to indication/reason for exam; i.e. extremities or head) *Use of iterative reconstruction technique DLP: 528 mGy-cm FINDINGS: LUNG BASES: The visualized lung bases are unremarkable. LIVER, GALLBLADDER, AND BILIARY TREE: The liver is mildly prominent in size at 17.5 cm. Shape and attenuation normal. No focal hepatic lesion or biliary ductal dilatation is present. The gallbladder is unremarkable with no evidence of radiopaque gallstones, gallbladder wall thickening, or obvious pericholecystic inflammatory changes. PANCREAS: Unremarkable. SPLEEN: Unremarkable. ADRENAL GLANDS: Unremarkable. KIDNEYS AND URETERS: The kidneys are normal in size, shape, and attenuation. No hydronephrosis, hydroureter, or calculi seen. No perinephric stranding. BLADDER: Unremarkable. GASTROINTESTINAL TRACT: The small and large bowel are unremarkable. The appendix is unremarkable. ABDOMINAL WALL: No significant hernia is appreciated. LYMPH NODES: Normal. VASCULAR: Unremarkable. PELVIC VISCERA: Unremarkable. OSSEOUS STRUCTURES: Unremarkable. CT/CT abdomen pelvis wo IV con IMPRESSION: 1. A cause for the patient's right-sided flank pain has not been found. There is no nephrolithiasis and the appendix is normal. 2. Incidental note made of mild hepatomegaly. Fleischner guidelines were followed.
--- NOTE | ~2024-04-07 | US_ITS ---
EXAMINATION: US PELVIS CLINICAL INFORMATION: Pain COMPARISON: Previous pelvic ultrasound from [address] of the abdomen and pelvis from the same day TECHNIQUE: Ultrasound of the pelvis is performed using both transabdominal and transvaginal transducers along with Doppler. Transvaginal imaging is performed due to inadequate visualization transabdominally. FINDINGS: Uterus: The uterus is anteverted and measures 8 x 4 x 5 cm. The double wall endometrial thickness is 1.2 mm. The uterus is smooth in contour and has normal myometrial echogenicity. No visible fibroid. Adnexa: Both ovaries are visualized. Both ovaries are normal in size. Both ovaries have polycystic appearance with multiple small peripheral cysts or follicles. Right ovary measures 3.4 x 2.2 x 2.7 cm. Left ovary measures 3.3 x 2.1 x 2.9 cm. No fluid in the pelvis. US/US pelvic and transvaginal IMPRESSION: Unremarkable exam.
[2024-04-07 10:43] VITALS: BP 122/64; PULSE 64; RESP 16; TEMP 35.6; O2SAT 99; BMI 28.2
[2024-04-07 11:27] LABS: Appearance Urine Cloudy; Color Urine Yellow; Glucose Urine UA Negative (Negative); Leukocyte Esterase Urine Small (1+) (Negative); Nitrite Urine Negative (Negative); PH 5.5 (5.0-9.0); Specific Gravity - Urine >= 1.030 (1.005-1.025); UMIC TRIGGER UACC YES; Urine Blood Trace (Negative); Urine Ketones Negative (Negative); Urine Protein Trace mg/dL (Neg-Trace)
[2024-04-07 11:28] LABS: UPreg QC Valid YES; Urine Pregnancy NEGATIVE (NEGATIVE)
--- NOTE | 2024-04-07 11:39 | ED.ABDPAIN ---
HPI - Abdominal Pain General Chief Complaint: Abdominal Pain Stated Complaint: Lower abd pain Time Seen by Provider: 04/07/24 11:39 Source: patient, RN notes reviewed and old records reviewed Mode of arrival: ambulatory History of Present Illness ED Provider: Sonia Gomes PA-C HPI narrative: 28-year-old female with a past medical history of anemia, irregular menstrual bleeding, presenting to the ED complaining of intermittent right lower quadrant abdominal pain and right flank pain x4 days which became worse/constant over the past day. Denies fever, chills, nausea, vomiting, diarrhea, dysuria/hematuria, vaginal bleeding/discharge, history of stones Related Data Previous Rx's ?Medication ?Instructions ?Recorded sennosides 8.6 mg tablet (Natural 17.2 mg (2 x 8.6 mg) PO BEDTIME 08/19/23 Senna Laxative) constipation #60 tabs Allergies Allergy/AdvReac Type Severity Reaction Status Date / Time shellfish derived Allergy Intermediate Rash Verified 04/07/24 10:47 seafood Allergy Unknown Unknown Verified 04/07/24 10:47 Review of Systems Review of Systems Constitutional: No Fever, No Chills ENT/Mouth: No Ear Pain, No Nasal Congestion, No sore throat, No Rhinorrhea, No Swallowing Difficulty Cardiovascular: No Chest Pain, No SOB Respiratory: No Cough, No Sputum, No Wheezing Gastrointestinal: No Nausea, No Vomiting, No Diarrhea, No Constipation, +Abdominal pain Genitourinary: No Dysuria, No Urinary Frequency, No Hematuria, No Flank Pain Musculoskeletal: No joint pain, No Myalgias, No Joint Swelling Skin: No Skin Lesions, No rash Neuro: No Weakness, No Numbness, No Paresthesias Yes all other systems are reviewed and are negative Constitutional: Reports as per [facility] Past Medical History Attestation statement: The following information was validated with the patient. Source: old records reviewed Medical History COVID-19 Neck pain Overweight (BMI 25.0-29.9) Blurry vision Anemia History of irregular menstrual bleeding History of anemia Mild depression Surgical History No pertinent past surgical history Family History Family History Father Diabetes mellitus HTN (hypertension) Mother Diabetes mellitus Paternal Grandfather HTN (hypertension) Family/Other Substance abuse in family Chronic mental illness Social History Social History Housing: Apartment Alcohol intake: never Patient Tobacco Use Status: Former Tobacco user Tobacco use type: Cigarette Smoked in Last 30 Days: No e-Cigarette/Vaping Use: Never Used Second Hand Smoke Exposure: No Use of substances other than those prescribed or required for medical reasons: No Advance Directives: No Advance Directives Information Provided: Yes Patient : No service: No Current occupational status: employed Current occupational exposures/hazards: No Sexual orientation: Straight/Heterosexual Gender identity: Female Cognitive needs: No Hearing needs: No Vision needs: No Physical Exam ED Vital Signs: Vital Signs - 24 hr 04/07/24 10:43 04/07/24 16:09 04/07/24 16:21 Temperature 96.1 F L 97.9 F 98.7 F Pulse Rate 64 56 55 Respiratory Rate 16 16 Blood Pressure 122/64 99/65 102/51 L Pulse Oximetry 99 96 100 Oxygen Delivery Method Room Air Room Air Room Air BMI result Body Mass Index 28.2 Const General: cooperative, healthy appearing and no acute distress Orientation/consciousness: patient oriented x3 Limitations: no limitations HENMT Head: Yes normal to inspection and Yes atraumatic Ears: hearing grossly normal bilaterally General nose exam: Normal external nose present Face and sinus: Yes normal facial exam Eyes General: appearance normal, both eyes and all related structures EOM: EOMs intact bilaterally Neck Neck: Yes normal visual inspection and Yes no meningeal signs Resp Effort & Inspection: normal respiratory effort and no respiratory distress Auscultation: clear to auscultation bilaterally Cardio Rate: regular rate Heart sounds: S1 normal heart sound present and S2 normal heart sound present GI Inspection: Yes normal to inspection Palpation (GI): Soft to palpation, Tenderness to palpation present (GI) (lower abdomen) with no rebound tenderness, no guarding and not rigid General: Yes no CVA tenderness Back/Spine/Pelvis Back: no CVA tenderness Skin Rashes: no rashes Wounds: no wounds Neuro General: patient oriented x3, tone normal and no meningeal signs Cranial nerves: Yes CN's II-XII intact bilaterally Gait exam (Neuro): Normal gait present Extrem General: Yes normal to inspection Course Course Course Narrative: -1225--UA with wbc's, small leuk esterase and RBCs, however contaminated. negative > will try to obtain repeat for better analysis -1454--labs unremarkable. Repeat UA not infected CT abdomen pelvis wo IV con IMPRESSION: 1. A cause for the patient's right-sided flank pain has not been found. There is no nephrolithiasis and the appendix is normal. 2. Incidental note made of mild hepatomegaly. Fleischner guidelines were followed. > on re-evaluation patient reports continued pain. Abdomen soft now with LLQ ttp > will obtain US for further eval 1600--US pelvic and transvaginal IMPRESSION: Unremarkable exam. Results discussed with patient, reports symptomatic improvement, feels comfortable for discharge home at this time. Discussed worrisome signs and symptoms and strict return precautions, and when to return to the emergency department. They verbalized understanding and feel safe for discharge at this time. Medical Decision Making Medical Decision Making [facility] Narrative: 28-year-old female with a past medical history of anemia, irregular menstrual bleeding, presenting to the ED complaining of intermittent right lower quadrant abdominal pain and right flank pain x4 days which became worse/constant over the past day. On exam vital signs stable, NAD, nontoxic appearing, abdomen soft with mild lower abdominal tenderness > right. No CVAT. No rebound or guarding. Concern for renal stone vs appendicitis vs UTI/pyelo. Ovarian torsion less likely. Plan: Labs, UA, CT AP, IVF, pain control, re-evaluate Please refer to course for remaining clinical decision making, interpretation of labs/imaging results, and discussions with consultants and/or family members. Differential Diagnosis Differential Diagnoses: The differential diagnosis associated with the presentation includes As above Admission/Observation Consideration of admission/observation: Escalation of care including admission/observation considered Lab Data [facility] Lab Attestation statement: I reviewed the patient's lab results. 04/07/24 12:21 04/07/24 12:21 Labs: Lab Results 04/07/24 04/07/24 04/07/24 Range/Units 11:19 12:21 14:00 WBC 7.7 (4.8-10.8) X10*3/uL RBC 4.49 (4.20-5.50) X10*6/uL Hgb 12.7 (12.0-16.0) g/dl Hct 37.8 (37.0-47.0) % MCV 84.2 (80.0-98.0) fL MCH 28.3 (27.0-33.0) pg MCHC 33.6 (31.0-35.0) g/dl RDW 12.7 (11.0-16.0) % Plt Count 342 (160-400) X10*3/uL MPV 9.2 L (9.4-12.3) fL Immature Gran % (Auto) 0.3 (0.0-0.4) % Neut % (Auto) 57.1 (45-73) % Lymph % (Auto) 31.2 (20-40) % [place] % (Auto) 9.7 (2-11) % Eos % (Auto) 1.2 (0-4) % Baso % (Auto) 0.5 (0-2) % Lymph # (Auto) 2.4 (1.2-4.9) X10*3/uL [place] # (Auto) 0.7 (0.1-1.2) X10*3/uL Eos # (Auto) 0.1 (0.0-0.4) X10*3/uL Baso # (Auto) 0.0 (0.0-0.2) X10*3/uL Abs Immat Gran (auto) 0.02 (0.00-0.03) X10*3/uL Absolute Neuts (auto) 4.4 (2.0-8.3) x10*3/uL Absolute Nucleated RBC 0.000 (0.0-0.012) X10*3/uL Nucleated RBC % (auto) 0.0 (0.0-0.2) /100WBC Sodium 140 (135-145) mmol/L Potassium 3.7 (3.3-5.1) mmol/L Chloride 107 (96-108) mmol/L Carbon Dioxide 25 (22-29) mmol/L Anion Gap 12 (12-20) BUN 10 (9-16) mg/dL Creatinine 0.68 (0.5-1.4) mg/dL Estim Creat Clear Calc 134.2 Estimated GFR > 60 Random Glucose 86 (60-115) mg/dL Calcium 9.6 (8.4-10.2) mg/dL Magnesium 1.8 (1.6-2.6) mg/dL Total Bilirubin 0.4 (0.0-1.0) mg/dL Direct Bilirubin 0.1 (0.0-0.5) mg/dL AST 14 (5-31) U/L ALT 13 (0-31) U/L Alkaline Phosphatase 81 (39-117) U/L Total Protein 7.3 (6.5-8.0) g/dL Albumin 4.2 (3.5-5.0) g/dL Lipase 19 (8-78) U/L Urine Color Yellow Yellow Urine Appearance Cloudy Clear Urine pH 5.5 5.5 (5.0-9.0) Ur Specific [place] >= 1.030 H 1.010 (1.005-1.025) Urine Protein Trace Negative (Neg-Trace) mg/dL Urine Glucose (UA) Negative Negative (Negative) mg/dL Urine Ketones Negative Negative (Negative) mg/dL Urine Blood Trace H Negative (Negative) Urine Nitrite Negative Negative (Negative) Ur Leukocyte Esterase Small (1+) H Negative (Negative) Urine RBC 3-5 H (0-2) /HPF Urine WBC 21-50 H (0-5) /HPF Ur Squamous Epith Cells 11-20 (0-2) /HPF Urine Bacteria 2+ (None Seen) Hyaline Casts 3-5 (0-2) /LPF Urine Test NEGATIVE (NEGATIVE) Independent Interpretation I performed an independent interpretation of an: CT Scan Radiology Impression Discussion of test interpretation with radiology: I have reviewed the radiologist's reading. External Record Review External record reviewed: Inpatient record, Office record, Outpatient record, Prior outpatient labs, Prior outpatient radiology, Primary care record and Outside ED record Tests considered The following testing was considered but not selected: As above Prescription Management I considered prescription management with: Pain Medication Medications Administered Discontinued Medications Generic Name Dose Route Start Last Admin Trade Name Freq PRN Reason Stop Dose Admin Sodium Chloride 1,000 mls @ 999 mls/hr 04/07/24 12:15 04/07/24 13:29 Ns IV 04/07/24 13:15 Infused .Q1H1M ULISES Infusion Ketorolac Tromethamine 15 mg 04/07/24 12:11 04/07/24 12:23 Ketorolac Tromethamine 15 Mg/Ml Vial IVPUSH 04/07/24 12:12 15 mg ONCE ONE Administration Ketorolac Tromethamine 15 mg 04/07/24 15:09 04/07/24 15:18 Ketorolac Tromethamine 15 Mg/Ml Vial IVPUSH 04/07/24 15:10 15 mg ONCE ONE Administration Discharge Plan Discharge Clinical Impression: Lower abdominal pain Prescriptions: No Action sennosides [Natural Senna Laxative] 8.6 mg tablet 17.2 mg PO BEDTIME Qty: 60 1RF Print Language: Nepalese
[2024-04-07 11:45] LABS: Bacteria Urine 2+ (None Seen); UACC Culture Trigger YES; WBC Urine 21-50 /HPF (0-5)
[2024-04-07] MEDS: 0.9 % Sodium Chloride 1,000 ML 999 ML IV (12:21)
[2024-04-07] MEDS: Ketorolac Tromethamine 15 MG/ML VIAL IVPUSH ×2 (12:23→15:18)
[2024-04-07 12:24] LABS: MANUAL DIFF FLAG NO
[2024-04-07 12:25] LABS: Basophils Percent Auto 0.5 % (0-2); Eosinophils Absolute Auto 0.1 X10*3/uL (0.0-0.4); Eosinophils Percent Auto 1.2 % (0-4); Hematocrit 37.8 % (37.0-47.0); Hemoglobin 12.7 g/dl (12.0-16.0); Imm Gran Abs Auto 0.02 X10*3/uL (0.00-0.03); Imm Gran Pct Auto 0.3 % (0.0-0.4); Lymphocytes Absolute Auto 2.4 X10*3/uL (1.2-4.9); Lymphocytes Percent Auto 31.2 % (20-40); Mean Corpuscular HGB Conc 33.6 g/dl (31.0-35.0); Mean Corpuscular Hemoglobin 28.3 pg (27.0-33.0); Mean Corpuscular Volume 84.2 fL (80.0-98.0); Mean Platelet Volume 9.2 fL (9.4-12.3); Monocytes Absolute Auto 0.7 X10*3/uL (0.1-1.2); Monocytes Percent Auto 9.7 % (2-11); Neutrophils Absolute Auto 4.4 x10*3/uL (2.0-8.3); Neutrophils Percent Auto 57.1 % (45-73); Platelet Count 342 X10*3/uL (160-400); Red Blood Count 4.49 X10*6/uL (4.20-5.50); Red Cell Distribution Width 12.7 % (11.0-16.0); White Blood Count 7.7 X10*3/uL (4.8-10.8)
[2024-04-07 12:41] LABS: Alanine Aminotransferase 13 U/L (0-31); Albumin Level 4.2 g/dL (3.5-5.0); Alkaline Phosphatase 81 U/L (39-117); Anion Gap 12 (12-20); Aspartate Amino Transferase 14 U/L (5-31); Bilirubin Direct 0.1 mg/dL (0.0-0.5); Bilirubin Total 0.4 mg/dL (0.0-1.0); Blood Urea Nitrogen 10 mg/dL (9-16); Calcium 9.6 mg/dL (8.4-10.2); Carbon Dioxide 25 mmol/L (22-29); Chloride 107 mmol/L (96-108); Creatinine Clr Calc Pharmacy 134.2; Estimated Glomerular Filt Rate > 60; Glucose Random 86 mg/dL (60-115); Lipase 19 U/L (8-78); Magnesium 1.8 mg/dL (1.6-2.6); Potassium 3.7 mmol/L (3.3-5.1); Sodium 140 mmol/L (135-145); Total Protein 7.3 g/dL (6.5-8.0)
[2024-04-07 14:20] LABS: Appearance Urine Clear; Color Urine Yellow; Glucose Urine UA Negative (Negative); Leukocyte Esterase Urine Negative (Negative); Nitrite Urine Negative (Negative); PH 5.5 (5.0-9.0); Urine Blood Negative (Negative); Urine Ketones Negative (Negative); Urine Protein Negative (Neg-Trace)
[2024-04-07 16:09] VITALS: BP 99/65; PULSE 56; RESP 16; TEMP 36.6; O2SAT 96
[2024-04-07 16:21] VITALS: BP 102/51; PULSE 55; TEMP 37.1; O2SAT 100
[2024-04-07 17:08] VITALS: BP 102/51; PULSE 55; RESP 16; TEMP 37.1; O2SAT 100
== END 2024-04-07 17:09 | disposition home or self-care (01) ==
PROVIDERS: Physician Assistant; Emergency Provider Emergency Medicine; PCP Internal Medicine
DX: R10.31 Right lower quadrant pain (principal)
CPT/HCPCS: 36415; 74176; 76830; 76856; 80048; 80076; 81001; 81003; 81025; 83690; 83735; 85025; 87086; 96361; 96374; 96376; 99284; J1885

== ENCOUNTER 2024-04-19 15:28 | Outpatient (AMB) | payer OTHER, SELFPAY ==
--- OUTSIDE RECORDS SUMMARY | 2024-04-19 15:30 | XMS_ITS | Continuity of Care Document ---
Author Organization [facility] Address [address] [place] [address], [address]t [address] [place] [id number]- Care Team Providers Care Grain Operator Name Role Phone Juve Ricks MD, Arlyn Massey Primary Care Physician Encounter [facility] [place] Date(s): 07/18/22 - 11/15/22 [facility] Reproductive Medicine [address] [place] [address], 4th [address] [place] [address]- Attending Physician: Not on Staff, Attending MD Referring Physician: Arlyn May MD Patient Care team information Care Team Personnel Name: Arlyn May MD Position: Reference Physician Member Role: PCP Address: Address: [address] [place] [id number]-
--- OUTSIDE RECORDS SUMMARY | 2024-04-19 15:30 | XMS_ITS | Continuity of Care Document ---
Author Organization [facility] Address [address] [facility], 4t [address] [place] [address]- Care Team Providers Care Car Cooper Name Role Phone Aida Ludwig MD Primary Care Physician Encounter [facility] Date(s): 09/14/20 - 10/14/20 [facility] Reproductive Medicine [address], 4th Floor [address] [place] [id number]- Attending Physician: Aranza Stark Admitting Physician: Aranza Stark Referring Physician: Aranza Stark
--- OUTSIDE RECORDS SUMMARY | 2024-04-19 15:30 | XMS_ITS | Continuity of Care Document ---
Author Organization [facility] e Medicine Address [address] [place] [address], [address]t [address] [place] [phone]- Care Team Providers Care Floor Surfacer Name Role Phone Juve Ricks MD, Arlyn Massey Primary Care Physician [phone] Encounter [facility] [place] Date(s): 10/16/22 - 11/15/22 [facility] Reproductive Medicine [address] [place] [address], [address]th [address] [place] [id number] Attending Physician: Aranza Stark Admitting Physician: Admtr, Ar8 Referring Physician: Admtr, Ar8 Patient Care team information Care Team Personnel Name: Arlyn May MD Position: Reference Physician Member Role: PCP Address: Address: [address] [place] [id number]
--- OUTSIDE RECORDS SUMMARY | 2024-04-19 15:30 | XMS_ITS | Continuity of Care Document ---
Author Organization [facility] Medicine Address [address], 4t [address] [place] [address]- Care Team Providers Care Radio Producer Name Role Phone Aida Ludwig MD Primary Care Physician Encounter [facility] Date(s): 08/06/20 - 10/14/20 [facility] Reproductive Medicine [address], 4th Floor [address] [place] [id number] Attending Physician: Amanda Edwards MD Referring Physician: Not on Staff, Referring
--- NOTE | 2024-04-19 15:41 | A.OFFVIS_ITS ---
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 No complaints. Last Pap smear was negative in 10/07 [facility] Medical History COVID-19 Neck pain Overweight (BMI 25.0-29.9) Blurry vision Anemia History of irregular menstrual bleeding History of anemia Mild depression Surgical History No pertinent past surgical history Family History Father Diabetes mellitus HTN (hypertension) Mother Diabetes mellitus Paternal Grandfather HTN (hypertension) Family/Other Substance abuse in family Chronic mental illness Social History Housing: Apartment Alcohol intake: never Patient Tobacco Use Status: Former Tobacco user Tobacco use type: Cigarette e-Cigarette/Vaping Use: Never Used Second Hand Smoke Exposure: No service: No Current occupational status: employed Current occupational exposures/hazards: No Sexual orientation: Straight/Heterosexual Gender identity: Female Cognitive needs: No Hearing needs: No Vision needs: No Female Reproductive History Menstrual Age of Menarche: 9 Duration of menses: 6-7 days Date of last menstrual period: 04/07/24 control method: none Total pregnancies: 0 Date of last pap smear: 09/19/20 (neg) Review of Systems Const All systems reviewed & are unremarkable except as noted in HPI and below Card Reports as per HPI Resp Reports as per HPI GI Reports as per HPI and Reports no additional complaints Reports as per HPI Physical Exam Vital Signs: Last Vital Signs BP 110/70 04/19/24 15:42 BMI result Body Mass Index 28.0 Const General: cooperative, healthy appearing and comfortable Chest Chest palpation & inspection: normal inspection of the chest and normal palpation of entire chest wall Breast/axilla inspection: normal inspection of the breasts and normal inspection of the axillae Breast/axilla palpation: normal palpation of the breasts, normal palpation of the axillae and no axillary lymphadenopathy Resp Effort & Inspection: normal respiratory effort Auscultation: clear to auscultation bilaterally Percussion: percussion normal Cardio Palpation: normal PMI Rate: regular rate Rhythm: regular rhythm Heart sounds: no murmurs and no rubs Peripheral pulses: Peripheral pulses 2+ throughout GI Inspection: Yes normal to inspection Palpation (GI): Soft to palpation, nontender, no guarding, not rigid and No hepatosplenomegaly present Percussion: Yes normal to percussion Auscultation: normal bowel sounds Rectal Exam - Female: deferred General: Yes bladder normal to palpation External Female Exam: No lesion Speculum Exam - Vagina: normal appearance of the vagina, normal palpation, normal vaginal discharge and not erythematous Speculum Exam - Cervix: normal appearance of the cervix and normal palpation Bimanual exam- vagina & uterus: normal bimanual exam, normal palpation, uterine size normal, bladder normal to palpation, consistency normal and normal p alpation Bimanual Exam- Adnexa, other: normal adnexae, no masses and no tenderness Assessment & Plan Assessment & Plan (1) Well woman exam: Code(s): Z01.419 - Encounter for gynecological examination (general) (routine) without abnormal findings Category: Medical Plan: Pap smear taken. Counseled the patient about the recommended dietary allowance of 1000 mg of Calcium & 600 IU of vitamin D. The patient was instructed to perform monthly self-breast exams , to call for any changes in menstrual patterns and to schedule an annual exam in a year; all questions answered and the patient verbalized understanding. Coding Level of Care Code Est Pt Prev Care 18-39y(80497) Diagnoses Well woman exam Z01.419
[2024-04-19 15:42] VITALS: BP 110/70; BMI 28.0
== END 2024-04-19 16:11 | disposition home or self-care (01) ==
LOC: HO.HWS 15:28
PROVIDERS: PCP Internal Medicine; Visit Provider Obstetrics & Gynecology
DX: Z01.419 Encounter for gynecological examination (general) (routine) without abnormal findings (principal)
CPT/HCPCS: 99395

== ENCOUNTER 2024-04-19 15:28 | Outpatient (REF) | payer OTHER, SELFPAY | END 2024-04-19 15:29 | disposition home or self-care (01) | LOC: HO.LNP 15:28 | PROVIDERS: PCP Internal Medicine; Visit Provider Obstetrics & Gynecology | DX: Z01.419 Encounter for gynecological examination (general) (routine) without abnormal findings (principal) | CPT/HCPCS: 87625; 88175; 99395 ==

== ENCOUNTER 2024-04-20 15:50 | Outpatient (REF) | payer OTHER, SELFPAY | END 2024-04-20 15:51 | disposition home or self-care (01) | LOC: HO.LNP 15:50 | PROVIDERS: Visit Provider Obstetrics & Gynecology | DX: Z13.89 Encounter for screening for other disorder (principal) ==

== ENCOUNTER 2024-05-16 15:02 | Outpatient (AMB) | payer OTHER, SELFPAY ==
--- NOTE | 2024-05-16 15:08 | A.OFFVIS_ITS ---
Vital Signs 05/16/24 15:10 Height 5 ft 7 in Weight 178 lb 9.191 oz BMI 28.0 Intake Visit Reasons: vaginal bump Sas Etl Developer Required: Yes Sas Etl Developer Language: Presser And Shaper Knitted Goods Services: Sas Etl Developer Present (in person) Sas Etl Developer Name: Isabelle LORA Information Interpreted: non-clinical & clinical Construction Sales Representative: Construction Sales Representative Present (Isabelle LORA) Accompanied by: Self / Same As Patient Allergies shellfish derived Allergy (Intermediate, Verified 05/16/24 15:12) Rash seafood Allergy (Unknown, Verified 05/16/24 15:12) Unknown Is last menstrual period known: Yes Last menstrual period: 04/11/24 HPI Comments Details: Presenting complaining of right labial minora cyst that drained yesterday, no residual pain PFSH Medical History COVID-19 Neck pain Overweight (BMI 25.0-29.9) Blurry vision Anemia History of irregular menstrual bleeding History of anemia Mild depression Surgical History No pertinent past surgical history Family History Father Diabetes mellitus HTN (hypertension) Mother Diabetes mellitus Paternal Grandfather HTN (hypertension) Family/Other Substance abuse in family Chronic mental illness Social History Housing: Apartment Alcohol intake: never Patient Tobacco Use Status: Former Tobacco user Tobacco use type: Cigarette e-Cigarette/Vaping Use: Never Used Second Hand Smoke Exposure: No service: No Current occupational status: employed Current occupational exposures/hazards: No Sexual orientation: Straight/Heterosexual Gender identity: Female Cognitive needs: No Hearing needs: No Vision needs: No Female Reproductive History Menstrual Age of Menarche: 9 Date of last menstrual period: 04/11/24 Review of Systems Const All systems reviewed & are unremarkable except as noted in HPI and below Physical Exam Vital Signs: BMI result Body Mass Index 28.0 General: Yes no CVA tenderness External Female Exam: normal external appearance (Right labia minora 0.5 cm cyst) and normal appearance of the urethra Speculum Exam - Vagina: normal appearance of the vagina, normal palpation, no lesions and no masses Speculum Exam - Cervix: normal appearance of the cervix, normal palpation, no lesions, no masses and nontender Bimanual exam- vagina & uterus: normal bimanual exam, normal palpation, uterine size normal, normal palpation, uterine shape normal, No Cervical tenderness present and non-tender Bimanual Exam- Adnexa, other: normal adnexae Back/Spine/Pelvis Back: no CVA tenderness Assessment & Plan Assessment & Plan (1) Labial cyst: Code(s): N90.7 - Vulvar cyst Category: Medical Plan: Discussed with the patient the finding on pelvic exam showing a right labial small cyst draining since there is no residual swelling, recommended observation, however if labial cyst recurs instructions were given to the patient to call back for I&D. All questions answered, the patient verbalized understanding and agreed with the plan. Coding Level of Care Code Est Pt Level 3 (30596) Diagnoses Labial cyst N90.7
[2024-05-16 15:10] VITALS: BMI 28.0
== END 2024-05-16 15:31 | disposition home or self-care (01) ==
LOC: HO.HWS 15:02
PROVIDERS: PCP Internal Medicine; Visit Provider Obstetrics & Gynecology
DX: N90.7 Vulvar cyst (principal)
CPT/HCPCS: 99213

== ENCOUNTER → 2024-05-16 15:02 | Outpatient (BNVA) | payer OTHER, SELFPAY | PROVIDERS: PCP Internal Medicine; Visit Provider Obstetrics & Gynecology | DX: N90.7 Vulvar cyst (principal) | CPT/HCPCS: 99212 ==

== ENCOUNTER 2024-07-14 07:14 | Emergency (ER) | payer OTHER, SELFPAY ==
[2024-07-14 07:27] VITALS: BP 115/80; PULSE 79; RESP 16; TEMP 36.6; O2SAT 98; BMI 28.4
[2024-07-14 07:53] VITALS: BP 112/81; PULSE 81; RESP 16; TEMP 36.7; O2SAT 98
--- NOTE | 2024-07-14 07:55 | ED_ITS ---
HPI - General Adult General Chief complaint: General Medical Stated complaint: Facial pain/swelling Time Seen by Provider: 07/14/24 07:52 Source: patient Mode of arrival: ambulatory Limitations: no limitations History of Present Illness HPI narrative: 28 year old female with known broken tooth with left face cheek area. Patient has had months of pain to left cheek for two days swelling noticed this morning. Did take one excedrin this morning. Denies fever or chills. Has a dentist. Related Data Previous Rx's ?Medication ?Instructions ?Recorded amoxicillin 875 mg-potassium 1 tab PO BID Infection #20 tabs 07/14/24 clavulanate 125 mg tablet Allergies Allergy/AdvReac Type Severity Reaction Status Date / Time shellfish derived Allergy Intermediate Rash Verified 07/14/24 07:29 seafood Allergy Unknown Unknown Verified 07/14/24 07:29 Review of Systems Review of Systems: Review of systems: General: Patient denies any fever chills recent illness or falls Musculoskeletal: Denies back pain or body aches or other injuries HEENT: left facial sweelling broken tooth left upper molar denies headache, runny nose, ear pain Respiratory: denies shortness of breath, cough Cardiovascular: no chest pain or palpitations : denies dysuria, frequency Abdomen: no nausea vomiting denies abdominal pain Extremities: no swelling, no pain Skin: no diaphoresis Yes all other systems are reviewed and are negative [facility] Past Medical History Medical History COVID-19 Neck pain Overweight (BMI 25.0-29.9) Blurry vision Anemia History of irregular menstrual bleeding History of anemia Mild depression Surgical History No pertinent past surgical history Family History Family History Father Diabetes mellitus HTN (hypertension) Mother Diabetes mellitus Paternal Grandfather HTN (hypertension) Family/Other Substance abuse in family Chronic mental illness Social History Social History Housing: Apartment Alcohol intake: never Patient Tobacco Use Status: Former Tobacco user Tobacco use type: Cigarette e-Cigarette/Vaping Use: Never Used Second Hand Smoke Exposure: No service: No Current occupational status: employed Current occupational exposures/hazards: No Sexual orientation: Straight/Heterosexual Gender identity: Female Cognitive needs: No Hearing needs: No Vision needs: No Physical Exam ED Vital Signs: Vital Signs - 24 hr 07/14/24 07:27 07/14/24 07:53 Temperature 97.9 F 98.1 F Pulse Rate 79 81 Respiratory Rate 16 16 Blood Pressure 115/80 112/81 Pulse Oximetry 98 98 Oxygen Delivery Method Room Air Room Air BMI result Body Mass Index 28.4 General: Well-appearing well-nourished in no signs of distress HEENT: Normocephalic atraumatic, broken tooth left upper molar second from last with some associated swelling no abscess palpated Neck: No signs of JVD, no masses no tenderness or lymphadenopathy Cardiovascular: Regular rate and rhythm Respiratory: Clear to auscultation bilaterally Abdomen: Soft nontender no masses Extremities: Normal pedal pulses no signs of edema Skin: Dry warm no rashes Back: No tenderness full ROM Medical Decision Making Medical Decision Making MDM Narrative: Patient looks well pulling nontoxic there is some minimal swelling I will start the patient antibiotics and she looks so well I she will do well Tylenol ibuprofen and antibiotics start her on Augmentin have the patient follow up. Differential Diagnosis Differential Diagnoses: The differential diagnosis associated with the presentation includes Dental abscess, dental pain Prescription Management I considered prescription management with: Pain Medication and Antibiotic Core Measures AMI core measures followed: Yes Discharge Plan Discharge Clinical Impression: Pain due to dental caries Patient Disposition: Home, Self-Care Instructions: Toothache (ED) Additional Instructions: You wer found to have a dental infection with some facial swelling. We started you on antibiotics. Please follow up with a dentist. Prescriptions: New amoxicillin-pot clavulanate 875-125 mg tablet 1 tab PO BID Qty: 20 0RF Stand Alone Forms: Work/School Release Print Language: Persian
[2024-07-14] MEDS: Ibuprofen 400 MG TABLET PO (08:26)
[2024-07-14] MEDS: Acetaminophen 325 MG TABLET 975 MG PO (08:26)
[2024-07-14] MEDS: Amoxicillin/Potassium Clav 875 MG TABLET PO (08:27)
[2024-07-14 08:33] VITALS: BP 112/81; PULSE 81; RESP 16; TEMP 36.7; O2SAT 98
== END 2024-07-14 08:34 | disposition home or self-care (01) ==
PROVIDERS: Emergency Provider Student in an Organized Health Care Education/Training Program; PCP Internal Medicine
DX: K02.9 Dental caries, unspecified (principal); R51.9 Headache, unspecified
CPT/HCPCS: 99283

== ENCOUNTER 2025-01-01 16:42 | Emergency (ER) | payer BC, SELFPAY ==
[2025-01-01 16:52] VITALS: BP 128/74; PULSE 104; RESP 16; TEMP 37.4; O2SAT 97; BMI 30.1
--- NOTE | 2025-01-01 16:52 | ED_ITS ---
HPI - URI/Sore Throat General Chief Complaint: Fever Stated Complaint: ear/throat pain Time Seen by Provider: 01/01/25 16:57 Source: patient Mode of arrival: ambulatory Limitations: no limitations History of Present Illness ED Provider: Jaqueline Partida PA-C HPI Narrative: 29 yo female presenting to the ER for evaluation of right ear pain, subjective fevers, runny nose and congestion for the last 4 days. pain in the right ear is 10/10. no cough, sob, chest pain, n/v/d or abdominal pain. she has had decreased PO intake today. no known sick contacts. MD elicited complaint: fever, nasal congestion and other (ear pain) Onset (ago): day(s) (4) Consistency: progressively worsening Severity: moderate Able to tolerate fluids by mouth: Yes Exacerbating factors: nothing Relieving factors: nothing Associated symptoms: fever, chills, myalgias, headache, nasal congestion, cough and ear pain Treatments prior to arrival: none Related Data Previous Rx's ?Medication ?Instructions ?Recorded amoxicillin 875 mg-potassium 1 tab PO BID Infection #20 tabs 07/14/24 clavulanate 125 mg tablet amoxicillin 875 mg-potassium 1 tab PO BID #14 tabs 01/01/25 clavulanate 125 mg tablet ibuprofen 600 mg tablet 600 mg PO Q8H PRN fever or pain 01/01/25 #14 tabs Allergies Allergy/AdvReac Type Severity Reaction Status Date / Time shellfish derived Allergy Intermediate Rash Verified 01/01/25 16:54 seafood Allergy Unknown Unknown Verified 01/01/25 16:54 Review of Systems Review of Systems: Yes all other systems are reviewed and are negative [facility] Past Medical History Medical History COVID-19 Neck pain Overweight (BMI 25.0-29.9) Blurry vision Anemia History of irregular menstrual bleeding History of anemia Mild depression Surgical History No pertinent past surgical history Family History Family History Father Diabetes mellitus HTN (hypertension) Mother Diabetes mellitus Paternal Grandfather HTN (hypertension) Family/Other Substance abuse in family Chronic mental illness Social History Social History Housing: Apartment Alcohol intake: never Patient Tobacco Use Status: Former Tobacco user Tobacco use type: Cigarette e-Cigarette/Vaping Use: Never Used Second Hand Smoke Exposure: No Advance Directives: No Advance Directives Information Provided: Yes service: No Current occupational status: employed Current occupational exposures/hazards: No Sexual orientation: Straight/Heterosexual Gender identity: Female Cognitive needs: No Hearing needs: No Vision needs: No Physical Exam Vital Signs: Vital Signs: Last Vital Signs Temp 99.4 F 01/01/25 17:09 Pulse 104 H 01/01/25 17:09 Resp 16 01/01/25 17:09 BP 128/74 01/01/25 17:09 Pulse Ox 97 01/01/25 17:09 O2 Del Method Room Air 01/01/25 17:09 BMI result Body Mass Index 30.1 Appearance: Alert. Oriented X3. No acute distress. Head: normocephalic, atraumatic. Eyes: Pupils equal, round and reactive to light. ENT: Pharynx normal. No tonsillar swelling or exudate. right TM with diffuse erythema, normal left TM. Neck: Normal inspection. Neck supple. No LAD CVS: Normal heart rate and rhythm. Pulses normal. Respiratory: No respiratory distress. Breath sounds normal. Skin: Skin warm and dry. Normal skin color. Normal skin turgor. No rashes. Extremities: No lower extremity edema. No joint swelling. Neuro/psych: Oriented X 3. grossly normal, nonfocal. Normal speech and cognition. Course Course Course Narrative: This is a Rapid Medical Examination (RME) performed by Jaqueline Partida PA-C in [facility]. Full HPI, ROS, assessment and treatment plan per primary provider in the Main ED. 29 y/o female presents to the ER for evaluation of subjective fevers, body aches, ear pain and Plan: Medical Decision Making Medical Decision Making MDM Narrative: 29 yo female presenting for evaluation of ear pain, nasal congestion, body aches. exam is c/w right otitis externa. she also may have a viral process going on as well. swab sent. stable for dc with antibiotics will call if positive for covid, flu or rsv. symptomatic management and supportive care discussed called patient at 1911 - influenza B positive. counseled on dx. no role for tamiflu. supportive care discussed. all questions answered Differential Diagnosis Differential Diagnoses: The differential diagnosis associated with the presentation includes strep, covid, flu, rsv, other viral syndrome, bronchitis, pneumonia, otitis media, otitis externa Lab Data MDM Lab Attestation statement: I reviewed the patient's lab results. Labs: Lab Results 01/01/25 Range/Units 17:03 Influenza Type A (PCR) NEGATIVE (Negative) Influenza Type B (PCR) POSITIVE A (Negative) RSV RNA Qual (PCR) NEGATIVE (Negative) SARS-CoV-2 RNA (RT-PCR) NEGATIVE (Negative) External Record Review External record reviewed: Outpatient record and Prior outpatient labs Tests considered The following testing was considered but not selected: cxr considered, lungs clear Prescription Management I considered prescription management with: Pain Medication and Antibiotic Critical Care Time Critical Care Time Critical Care Time: No Discharge Plan Discharge Clinical Impression: Acute ear infection Qualifiers: Laterality: right Qualified Code(s): H66.91 - Otitis media, unspecified, right ear Patient Disposition: Home, Self-Care Instructions: Ear Infection (ED) Additional Instructions: Take the prescribed antibiotics as directed, complete the entire course and do not miss any doses Take the prescribed ibuprofen as needed for pain and fever. Take it with food Rest and drink plenty of fluids Take over the counter cold/flu medications as needed for your symptoms If you test positive for COVID, Flu or RSV we will call you If you develop new or worsening symptoms call 911 or come back to the ER for further evaluation. Prescriptions: New amoxicillin-pot clavulanate 875-125 mg tablet 1 tab PO BID Qty: 14 0RF ibuprofen 600 mg tablet 600 mg PO Q8H PRN (Reason: fever or pain) Qty: 14 0RF No Action amoxicillin-pot clavulanate 875-125 mg tablet 1 tab PO BID Qty: 20 0RF Stand Alone Forms: Work/School Release Interventions: ED Discharge Assessment Last Done: 01/01/25 17:09 Discharge Date/Time: 01/01/25 17:10 Print Language: Kyrgyz
[2025-01-01 17:09] VITALS: BP 128/74; PULSE 104; RESP 16; TEMP 37.4; O2SAT 97
[2025-01-01 18:40] LABS: Influenza A PCR NEGATIVE (Negative); Influenza B PCR POSITIVE (Negative); Resp Syncy Virus RNA Qual PCR NEGATIVE (Negative); SARS COV2 PCR INHOUSE NEGATIVE (Negative)
== END 2025-01-01 17:10 | disposition home or self-care (01) ==
PROVIDERS: Physician Assistant; Emergency Provider Emergency Medicine; PCP Internal Medicine
DX: J10.1 Influenza due to other identified influenza virus with other respiratory manifestations (principal); H66.91 Otitis media, unspecified, right ear; Z87.891 Personal history of nicotine dependence
CPT/HCPCS: 0241U; 99282; 99283

== ENCOUNTER 2025-02-16 15:48 | Outpatient (AMB) | payer BC, SELFPAY ==
[2025-02-16 15:56] VITALS: BP 112/78; BMI 29.9
--- NOTE | 2025-02-16 15:56 | A.OFFPC_ITS ---
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 Accompanied by: Self / Same As Patient Allergies shellfish derived Allergy (Intermediate, Verified 02/16/25 16:11) Rash seafood Allergy (Unknown, Verified 02/16/25 16:11) Unknown Medication List - Last Reconciled 02/16/25 by Arlyn Ricks MD No Known Home Meds Tobacco use date assessed: 02/16/25 Dental Screening Dental Screen Date: 02/16/25 Did you have a dental visit in the last 12 months?: Yes Did you have a dental problem in the last 6 months where you did not have access to dental care?: No Was dental information given to patient?: Patient has dentist HPI HPI Comments History of Present Illness Details The patient is a 29-year-old female presenting for her physical exam. She has recurrent headaches and musculoskeletal neck pain. She reports that her headaches were daily, predominantly frontal, and associated with neck discomfort. They have persisted significantly but have notably reduced in frequency recently. The patient suspects occupational stress may have played a role. The patient's mother experiences disc-related neck pain, which she notes to be relevant, though this symptom correlation remains speculative. Headache episodes were extensive and occasionally responded to migraine-specific medications with inconsistent relief. There is a noted absence of visual disturbances. An earlier evaluation showed hypercholesterolemia, yet it was not severe enough to initiate medicinal therapy. Despite the occurrence of these symptoms, follow-up laboratory testing could not be completed due to occupational commitments. The patient denies other significant symptoms such as chest pain, dyspnea, skin abnormalities, or psychiatric conditions. - Tetanus vaccination received in 2022 w ith the next booster due in 2032. - Pap smear conducted in 2019 with an up coming appointment for a follow-up in April of this year. - Previous cholesterol screening indicat ed mildly elevated levels, not necessitating medication. [facility] Medical History (Updated 02/16/25 @ 16:19 by Arlyn Ricks MD) COVID-19 Neck pain Overweight (BMI 25.0-29.9) Blurry vision Anemia History of irregular menstrual bleeding History of anemia Mild depression Surgical History No pertinent past surgical history Family History Father Diabetes mellitus HTN (hypertension) Mother Diabetes mellitus Paternal Grandfather HTN (hypertension) Family/Other Substance abuse in family Chronic mental illness Social History Housing: Apartment Alcohol intake: never Patient Tobacco Use Status: Former Tobacco user Tobacco use type: Cigarette e-Cigarette/Vaping Use: Never Used Second Hand Smoke Exposure: No service: No Current occupational status: employed Current occupational exposures/hazards: No Sexual orientation: Straight/Heterosexual Gender identity: Female Cognitive needs: No Hearing needs: No Vision needs: No Female Reproductive History Menstrual Age of Menarche: 9 Questionnaire PHQ-9 Over the last 2 weeks, how often have you been bothered by any of the following problems? 1. Little interest or pleasure in doing things: not at all 2. Feeling down, depressed, or hopeless: not at all 3. Trouble falling or staying asleep, or sleeping too much: not at all 4. Feeling tired or having little energy: not at all 5. Poor appetite or overeating: several days 6. Feeling bad about yourself - or that you are a failure or have let yourself or your family down: several days 7. Trouble concentrating on things, such as reading the newspaper or watching television: not at all 8. Moving or speaking so slowly that other people could have noticed. Or the opposite - being so fidgety or restless that you have been moving around a lot more than usual: not at all 9. Thoughts that you would be better off or of hurting yourself in some way: not at all Total score: 2 Depression Screening Interpretation: Negative Depression Screening Done: Yes Source: Developed by Drs. Saman Ann, Zaira Galeas, Santos Hui and colleagues, with an educational ad from [employer]. Thrive Questionnaire Date Thrive assessed: 02/16/25 I am a: Patient What is your living situation today?: I have a steady place to live Within the past 12 months, did the food you bought not last and you didn't have the money to get more?: I choose not to answer this question Within the past 12 months, did you worry whether your food would run out before you got money to buy more?: I choose not to answer this question Do you have trouble paying for medicines?: I choose not to answer this question Do you have trouble getting transportation to medical appointments?: No Do you have trouble paying your heating and electricity bill?: No Do you have trouble taking care of your child, family member or friend?: No Do you have trouble with day-to-day activities such as bathing, preparing meals, shopping, managing finances, etc.?: No Are you currently unemployed and looking for a job?: No Are you interested in more education?: No Please select the resources that you would like help with: None Currently or been in a relationship where the following occur: No concerns reported THRIVE Score: 0 AUDIT C Alcohol Use Questionnaire (AUDIT-C) 1. How often do you have a drink containing alcohol?: Never Total Score: 0 Score Reviewed/Action Taken: No GINGER-7 AMB Questionnaire GINGER-7 Date GINGER - 7 assessed: 02/16/25 Feeling nervous, anxious, or on edge: 0 = Not at all Not being able to stop or control worryin = Not at all Worrying too much about different things: 0 = Not at all Trouble relaxin = Not at all Being so restless that it is hard to sit still: 0 = Not at all Becoming easily annoyed or irritable: 0 = Not at all Feeling afraid as if something awful might happen: 0 = Not at all Total GINGER-7 score (0-4 normal; 5-9 mild; 10-14 moderate; 15-21 severe): 0 Source: Developed by Drs. Saman Ann, Zaira Galeas, Santos Hui and colleagues, with an educational ad from [employer]. GINGER-7 Assessment Billing GINGER-7 Assessment Tool: GINGER-7 Assessment 86606 Review of Systems Const All systems reviewed & are unremarkable except as noted in HPI and below Card Denies chest pain at rest, Denies chest pain with activity, Denies edema, Denies irregular heart rhythm, Denies claudication, Denies dyspnea, Denies dyspnea on exertion, Denies orthopnea, Denies paroxysmal nocturnal dyspnea and Denies slow heart rate Resp Denies cough, Denies dyspnea and Denies dyspnea on exertion GI Denies abdominal pain, Denies change in bowel habits, Denies excessive flatus, Denies nausea and Denies vomiting Physical exam (Primary Care) Vital Signs: Last Vital Signs BP 112/78 02/16/25 15:56 BMI result Body Mass Index 29.9 Tobacco/Smoking Status: Tobacco use Status Tobacco use date assessed 02/16/25 02/16/25 15:59 Patient Tobacco Use Status Former Tobacco user 02/16/25 15:59 Tobacco use type Cigarette 02/16/25 15:59 e-Cigarette/Vaping Use Never Used 02/16/25 15:59 PHQ-9: PHQ-9 Score PHQ-9: Total score 2 02/16/25 16:13 Depression Screening Interpretation: Negative Thrive Assessment: Date of Thrive Assessment Date Thrive assessed 02/16/25 02/16/25 15:59 Currently or been in a relationship where the following occur: No concerns reported HENMT Head: Yes normal to inspection, Yes normocephalic and Yes atraumatic Ears: external ears normal Eyes General: appearance normal, both eyes and all related structures Eyelids: Yes eyelids normal Conjunctivae: conjunctivae normal Neck Neck: Yes normal visual inspection and Yes supple Resp Effort & Inspection: normal respiratory effort Auscultation: clear to auscultation bilaterally Cardio Jugular venous distension: no JVD Rate: regular rate Rhythm: regular rhythm Heart sounds: S1 normal heart sound present and S2 normal heart sound present GI Inspection: Yes normal to inspection Palpation (GI): Soft to palpation and nontender Auscultation: normal bowel sounds Skin General skin exam: no rashes or lesions noted Neuro General: no focal motor deficits Extrem General: Yes full ROM Psych Appearance: grossly normal Coding Level of Care Code Est Pt Level 3 (94561) Est Pt Prev Care 18-39y(38248) Diagnoses Physical exam Z00.00 Neck pain M54.2 New daily persistent headache G44.52 Additional Codes GINGER-7 Assessment Billing - GINGER-7 Assessment Tool: GINGER-7 Assessment 39468 ([id number]) Time Spent (min) 34 Assessment & Plan Assessment & Plan (1) Physical exam: Code(s): Z00.00 - Encounter for general adult medical examination without abnormal findings Category: Medical (2) Neck pain: Code(s): M54.2 - Cervicalgia Category: Medical (3) New daily persistent headache: Code(s): G44.52 - New daily persistent headache (NDPH) Category: Medical Plan The patient is scheduled for an MRI of the brain and an X-ray of the cervical spine to investigate her chronic headache and neck pain origins. Follow-up laboratory work is needed to reassess her cholesterol levels after fasting. She can continue using [id number] medications for migraines with caution. Emphasis on postural modifications and ergonomic corrections at her workplace is advised. We discussed her interest in weight loss injections, explaining that her BMI currently categorizes her as overweight, thus not qualifying for such treatments. Patient was informed and verbally consented to the use of an ambient scribe for clinic note documentation during this visit. During our discussion, I emphasized the need for precise diagnostics via MRI to rule out any sinister causes of the headaches and cervical spine x-ray to assess musculoskeletal concerns. We reviewed the potential impact of occupational stress on her symptoms and explored preventive strategies such as posture correction. I also discussed potential side effects of her current medication use and advised continued cautious usage of migraine medication. An explanation was provided regarding the eligibility criteria for weight loss injections, noting her current BMI categorization. We also reviewed the necessity of ad dressing cholesterol management through lifestyle measures and fasting labs. I encouraged follow-up to monitor her condition and recommended communicating any escalation of symptoms promptly. Orders: Orders Lipid Panel Today E78.5 - Hyperlipidemia, unspecified MR head/brain wo con Today G44.52 - New daily persistent headache (NDPH) XR cervical spine 2V Today M54.2 - Cervicalgia Comprehensive [place]. Panel Fast Today Z00.00 - Encounter for general adult medical examination without abnormal findings Patient Instructions: - Prepare for an MRI and cervical spine x-ray; you will be contacted for scheduling. - Fast before your upcoming cholesterol and fasting lab tests. - Continue using your migraine medication cautiously as needed. - Adjust work posture and continue ergonomic evaluations to help with neck pain. - Be aware that your BMI currently categorizes you as overweight, not obese, in the context of weight loss injections. - Please report any new or worsening symptoms as they occur.
== END 2025-02-16 16:20 | disposition home or self-care (01) ==
LOC: HO.HMCH 15:49
PROVIDERS: PCP Internal Medicine; Visit Provider Internal Medicine
DX: Z00.00 Encounter for general adult medical examination without abnormal findings (principal); M54.2 Cervicalgia; G44.52 New daily persistent headache (NDPH)

== ENCOUNTER → 2025-02-16 15:48 | Outpatient (BNVA) | payer BC, SELFPAY | PROVIDERS: PCP Internal Medicine; Visit Provider Internal Medicine | DX: Z00.00 Encounter for general adult medical examination without abnormal findings (principal); M54.2 Cervicalgia; G44.52 New daily persistent headache (NDPH) | CPT/HCPCS: 96127 ==

== ENCOUNTER 2025-02-25 11:05 | Outpatient (REF) | payer BC, SELFPAY ==
--- NOTE | ~2025-02-25 | MR_ITS ---
EXAMINATION: MR BRAIN WITHOUT CONTRAST CLINICAL INFORMATION: Persistent headache. COMPARISON: None available. TECHNIQUE: MRI of the brain was obtained using routine sequences without contrast. FINDINGS: There is a 1 cm restricted diffusion lymph nodes centered in the left retropharynx. No restricted diffusion within the brain parenchyma. No acute intracranial hemorrhage, mass effect, midline shift, hydrocephalus or herniation. Tejeda-white matter differentiation is normal. Posterior cranial fossa contents demonstrated no signal abnormality or mass effect. There is a 1 mm CSF equivalent signal in the left cerebellar white matter. Sellar/suprasellar region demonstrated no signal abnormality or masses. Craniocervical junction is intact with normal position of the cerebellar tonsils. Midline structures are intact. Flow-void signal within the main cerebral vessels is normal. MR/MR head/brain wo con IMPRESSION: No acute brain abnormality. Prominent restricted diffusion lymph nodes, left retropharynx. Nonspecific. Inflammatory versus infectious process should be considered among other etiologies.. Electronically signed by: Antonio Vinson MD 02/27/2025 07:52 AM EDT
[2025-02-25 11:13] LABS: Alanine Aminotransferase 27 U/L (0-31); Albumin Level 4.5 g/dL (3.5-5.0); Alkaline Phosphatase 78 U/L (39-117); Anion Gap 16 (12-20); Aspartate Amino Transferase 24 U/L (5-31); Bilirubin Total 0.4 mg/dL (0.0-1.0); Blood Urea Nitrogen 17 mg/dL (9-16); Calcium 9.6 mg/dL (8.4-10.2); Carbon Dioxide 23 mmol/L (22-29); Chloride 106 mmol/L (96-108); Cholesterol 187 mg/dL (<200); Estimated Glomerular Filt Rate > 60; Glucose Fasting 104 mg/dL (60-99); HDL Cholesterol 32 mg/dL (>40); LDL Cholesterol Calculated 121 mg/dL (<100); Potassium 4.2 mmol/L (3.3-5.1); Sodium 141 mmol/L (135-145); Total Protein 7.9 g/dL (6.5-8.0); Triglycerides 170 mg/dL (<150)
[2025-02-25 11:31] LABS: Vitamin D 25-OH Total 22.2 ng/mL (>30)
== END 2025-02-25 11:06 | disposition home or self-care (01) ==
LOC: HO.MRI 11:05
PROVIDERS: PCP Internal Medicine; Visit Provider Internal Medicine
DX: G44.52 New daily persistent headache (NDPH) (principal); E55.9 Vitamin D deficiency, unspecified; E78.5 Hyperlipidemia, unspecified; K75.81 Nonalcoholic steatohepatitis (NASH)
CPT/HCPCS: 36415; 70551; 80053; 80061; 82306

== ENCOUNTER → 2025-02-25 11:25 | Outpatient (BNV) | payer BC, SELFPAY | PROVIDERS: PCP Internal Medicine; Visit Provider Radiology Diagnostic Radiology | DX: R51.9 Headache, unspecified (principal) | CPT/HCPCS: 70551 ==

== ENCOUNTER 2025-09-25 14:16 | Outpatient (REF) | payer BC, SELFPAY | END 2025-09-25 14:17 | disposition home or self-care (01) | LOC: HO.LAB 14:16 | PROVIDERS: PCP Internal Medicine; Visit Provider Internal Medicine | DX: N92.6 Irregular menstruation, unspecified (principal); Z32.00 Encounter for pregnancy test, result unknown | CPT/HCPCS: 36415; 84702 ==